=== PATIENT | female | born 1935 | race Caucasian/White ===

== ENCOUNTER 2016-10-31 01:16 | Emergency (ER) | payer MEDICARE ==
[~2016-10-31] VITALS: Ht 170.2 cm; Wt 118.5 kg
[2016-10-31 01:16] VITALS: Ht 170.2 cm; Wt 118.5 kg
[~2016-10-31 01:16] MED LIST: ACET-2321 PO; ALBU18HF2 INH; ALBU2.5V2 AEROSOL; AMIO200T2 PO; AMLO5TAB4 PO; APIX5TAB PO; BUDE0.5A IH; CALC-747 PO; CYCL-375 PO; DOCU-175 PO; FENO150C4 PO; FURO40TA5 PO; GLUC-176 PO; GUAI120015 PO; LEVO25TA4 PO; LYSI500T PO; METO-482 PO; MINO10TA PO; NITR0.4T SL; POTA10TA92 PO; PRAV80TA23 PO; PRED10TA PO; RANI-45 PO; TOLT4CAP12 PO; TRAM50TA4 PO; [UNRECOGNIZED DRUG - CODE] PO
--- OUTSIDE RECORDS SUMMARY | 2016-10-31 01:25 | XMS REPORT | Referral Summary ---
Author Author [facility] Organization [facility] Address Unknown Phone Unavailable Care Team Providers Care Detective Narcotics And Vice Name Role Phone Booker Pierre Primary Care Physician [phone] Encounter VC Date(s): 09/03/16 - 09/03/16 [facility] [address] [place], [place] [address] Discharge Disposition: 01-Home or Self Care Attending Physician: Kate Khan APRN Admitting Physician: Kate Khan APRN Vital Signs Most recent to 1 oldest [Reference Range]: Respiratory Rate 22 br/min [14-20 br/min] *HI* (09/03/16 10:08 AM) Problem List Condition Effective Dates Status Health Status Informant Kidney function Active patient abnormal(Confirmed) Acute Active pain(Confirmed) Atrial Active patient fibrillation(Confirm ed) COPD (chronic Active obstructive pulmonary disease)(Confirmed) CHF (congestive Active patient heart failure)(Confirmed) Edema(Confirmed) Active patient GERD Active patient (gastroesophageal reflux disease)(Confirmed) Hypertension(Confirm Active patient ed) Breast Active patient cancer(Confirmed) Myocardial Active infarction(Confirmed ) Mumps(Confirmed) Active Obesity(Confirmed) Active patient Scarlet Active fever(Confirmed) Sleep Active patient apnea(Confirmed) Chicken Active pox(Confirmed) Shingles(Confirmed) Active Allergies, Adverse Reactions, Alerts No Known Allergies Medications albuterol 5 mg/mL (0.5%) inhalation solution 2.5 mg 0.5 mL, NEB, qAM, # 20 mL, 0 Refill(s) Start Date: 07/20/16 Status: Ordered amiodarone 200 mg oral tablet 200 mg 1 tabs, Oral, Daily, 0 Refill(s) Start Date: 06/23/16 Status: Ordered amLODIPine 5 mg oral tablet 5 mg 1 tabs, Oral, Daily, 0 Refill(s) Start Date: 06/02/15 Status: Ordered amoxicillin 500 mg oral capsule 500 mg 1 caps, Oral, Daily, 0 Refill(s) Start Date: 06/23/16 Status: Ordered budesonide 0.5 mg/2 mL inhalation suspension 0.5 mg 2 mL, NEB, BID, # 120 mL, 0 Refill(s) Start Date: 06/02/15 Status: Ordered Colace 100 mg, Oral, BID, 0 Refill(s) Start Date: 06/02/15 Status: Ordered cyclobenzaprine 10 mg oral tablet 10 mg 1 tabs, Oral, BID, as needed for spasm, # 30 tabs, 0 Refill(s) Start Date: 06/02/15 Status: Ordered Detrol LA 4 mg, Oral, Daily, 0 Refill(s) Start Date: 06/02/15 Status: Ordered Eliquis 5 mg oral tablet 5 mg 1 tabs, Oral, BID, # 60 tabs, 0 Refill(s) Start Date: 05/29/15 Status: Ordered fenofibrate 40 mg oral tablet 40 mg 1 tabs, Oral, Daily, 0 Refill(s) Start Date: 06/02/15 Status: Ordered furosemide 40 mg, Oral, After Lunch, 0 Refill(s) Start Date: 07/20/16 Status: Ordered Klor-Con 10 10 mEq, Oral, BID, 0 Refill(s) Start Date: 06/02/15 Status: Ordered Lasix 40 mg oral tablet 80 mg 2 tabs, Oral, qAM, 0 Refill(s) Start Date: 06/02/15 Status: Ordered metoprolol tartrate 50 mg oral tablet 50 mg 1 tabs, Oral, BID, 0 Refill(s) Start Date: 06/23/16 Status: Ordered minoxidil 10 mg, Oral, TID, 0 Refill(s) Start Date: 06/02/15 Status: Ordered Mucinex 1 tabs, Oral, q12hr, 0 Refill(s) Start Date: 06/23/16 Status: Ordered nitroglycerin 0.4 mg sublingual tablet 0.4 mg 1 tabs, SubLingual, q5min, as needed for chest pain, # 100 tabs, 0 Refill (s) Start Date: 06/02/15 Status: Ordered nystatin Oral, 0 Refill(s) Start Date: 09/03/16 Status: Ordered Osteo Bi-Flex 1 tabs, Oral, TID, 0 Refill(s) Start Date: 06/02/15 Status: Ordered Oystercal-D 1 tabs, Oral, BID, 0 Refill(s) Start Date: 06/02/15 Status: Ordered pravastatin 80 mg oral tablet 80 mg 1 tabs, Oral, Bedtime (once a day), 0 Refill(s) Start Date: 06/02/15 Status: Ordered ranitidine 150 mg oral tablet 150 mg 1 tabs, Oral, Daily, 0 Refill(s) Start Date: 06/02/15 Status: Ordered Synthroid 25 mcg (0.025 mg) oral tablet 25 mcg 1 tabs, Oral, Daily, # 30 tabs, 0 Refill(s) Start Date: 06/23/16 Status: Ordered Ultram 50 mg oral tablet 50 mg 1 tabs, Oral, q6hr, as needed for pain, 0 Refill(s) Start Date: 06/02/15 Status: Ordered Results No data available for this section Immunizations No data available for this section Procedures Procedure Date Related Diagnosis Body Site ankle Breast biopsy sample Bunion left foot1 History of right total knee arthroplasty2 Insertion of [id number] Knee arthroplasty left knee x 34 Mastectomy of right breast [id number],2005 Social History Social History Type Response Smoking Status Never smoker Assessment and Plan Extracted from: Title: Office Visit Note Author: Kate Khan APRN Date: 09/03/16 Assessment/Plan Proximal humerus fracture Patient is 12 weekspost falland left proximal humerus fracture. [facility]. Patient will follow-up with us again in 1 monthfor reevaluation. Pt is in agreement with this plan. All questions where answered in clinic. My card was given to the pt and told to call if they have any questions or concerns. Ordered: Office Visit Level 3 Est 13973 Request for Therapies XR Shoulder Complete Left
--- OUTSIDE RECORDS SUMMARY | 2016-10-31 01:26 | XMS REPORT | Referral Summary ---
Author Author [facility] Organization [facility] Address Unknown Phone Unavailable Care Team Providers Care Staking Engineer Name Role Phone Booker Pierre Primary Care Physician [phone] Encounter VC Date(s): 07/27/16 - 07/27/16 [facility] [address] [place] [address] [phone] Discharge Disposition: -Home or Self Care Attending Physician: Brenden Koroma MD Admitting Physician: Brenden Koroma MD Vital Signs Most recent to 1 oldest [Reference Range]: Temperature Oral 36.8 degC [35.8-37.3 degC] (07/20/16 2:00 PM) Temperature Skin 36.7 degC [36-37 degC] (07/27/16 9:45 AM) Temperature Temporal 37.0 degC Artery [36.3-37.8 (07/27/16 3:20 PM) degC] Peripheral Pulse 99 bpm Rate [60-100 bpm] (07/27/16 3:20 PM) Heart Rate Monitored 108 bpm [60-100 bpm] *HI* (07/27/16 2:32 PM) Respiratory Rate 18 br/min [14-20 br/min] (07/27/16 3:20 PM) Blood Pressure 120/61 mmHg [90-140/60-90 mmHg] (07/27/16 3:20 PM) SpO2 95 % (07/27/16 3:20 PM) Problem List Condition Effective Dates Status Health [...] Refill (s) Start Date: 06/02/15 Status: Ordered Osteo Bi-Flex 1 tabs, Oral, [...] Refill(s) Start Date: 06/02/15 Status: Ordered Results Chemistry Most recent to 1 oldest [Reference Range]: Blood Glucose, 114 mg/dL Capillary [70-100 *HI* mg/dL] (07/27/16 9:49 AM) Immunizations No data available for this section Procedures Procedure Date Related Diagnosis Body Site ankle Breast biopsy sample Bunion left foot1 History of right total knee arthroplasty2 Insertion of [id number] Knee arthroplasty left knee x 34 Mastectomy of right breast [id number],1998,2005 Social History Social History Type Response Smoking Status Never smoker Assessment and Plan No data available for this section
--- OUTSIDE RECORDS SUMMARY | 2016-10-31 01:26 | XMS REPORT | Continuity of Care Document ---
Author Author [facility] Organization [facility] Address Unknown Phone Unavailable Allergies Medications Medication Packaging Start Date Stop Date Route Dosage Sig lysine 500 mg tablet 05/16/2015 500 mg take 1 (one) Tablet by Oral route daily Pulmicort 0.5 mg/2 mL suspension for nebulization 05/16/2015 0.5 mg/2 mL 1 (one) by Inhalation route daily pravastatin 80 mg tablet 05/16/2015 80 mg take 1 (one) Tablet by Oral route daily potassium chloride ER 20 mEq tablet,extended release(part/ cryst) 05/16/2015 20 mEq 3 (three) by Oral route daily ranitidine 150 mg tablet 05/26/2015 05/26/2015 150 mg take 1 (one) Tablet by Oral route daily Osteo Bi-Flex 250 mg-200 mg tablet Ampule 08/03/2016 250-200 mg take 1 (one) Tablet by Oral route daily Problems Date Dx Coded Attending Type Code Diagnosis Diagnosed By 06/09/2015 LAURA BERMUDEZ MD C34.12 Malignant neoplasm of upper lobe, left bronchus or lung AIDAN AVILA, LAURA 06/09/2015 LAURA BERMUDEZ MD J45.40 Moderate persistent asthma, uncomplicated AIDAN AVILA, LAURA 06/09/2015 LAURA BERMUDEZ MD R06.02 Shortness of breath ДМИТРИЙ LINARES MD, LAURA 06/09/2015 LAURA BERMUDEZ MD R09.02 Hypoxemia AIDAN AVILA, LAURA 08/09/2016 LAURA BERMUDEZ MD J45.40 Moderate persistent asthma, uncomplicated AIDAN AVILA, LAURA 08/09/2016 LAURA BERMUDEZ MD R06.02 Shortness of breath ДМИТРИЙ LINARES MD, LAURA 08/09/2016 LAURA BERMUDEZ MD R09.02 Hypoxemia AIDAN AVILA, LAURA 09/20/2016 LAURA BERMUDEZ MD J45.909 Unspecified asthma, uncomplicated LAURA BERMUDEZ MD Procedures Code Description [place] [address] Noninvasive ear or pulse oximetry for oxygen saturation; single determination LAURA BERMUDEZ MD 12/22/2015 50033 Office or other outpatient visit for the evaluation and management of an established patient, which LAURA BERMUDEZ MD 12/22/2015 06379 Office or other outpatient visit for the evaluation and management of an established patient, which LAURA BERMUDEZ MD 08/09/2016 36072 Office or other outpatient visit for the evaluation and management of an established patient, which LAURA BERMUDEZ MD 08/09/2016 15432 Office or other outpatient visit for the evaluation and management of an established patient, which LAURA BERMUDEZ MD 09/06/2016 33389 Bronchodilation responsiveness[place] [address], pre- and post- bronchodilator administration LAURA BERMUDEZ MD 09/20/2016 72350 Gas dilution or washout for determination of lung volumes and, when performed, distribution of venti LAURA BERMUDEZ MD 09/20/2016 46624 Diffusing capacity (eg, carbon monoxide, membrane) (List separately in addition to code for primary LAURA BERMUDEZ MD 09/20/2016 92020 Bronchodilation responsiveness[place] [address], pre- and post- bronchodilator administration LAURA BERMUDEZ MD 10/06/2016 82963 Gas dilution or washout for determination of lung volumes and, when performed, distribution of venti LAURA BERMUDEZ MD 10/06/2016 02568 Diffusing capacity (eg, carbon monoxide, membrane) (List separately in addition to code for primary LAURA BERMUDEZ MD 10/06/2016 Results Encounters ACCT No. Visit Date/Time Discharge Status Pt. Type Provider Facility Loc./Unit Complaint [id number] 02/29/2012 07:23:00 2011 13:00:00 DIS Outpatient Nacho RENEE, [facility]
--- OUTSIDE RECORDS SUMMARY | 2016-10-31 01:26 | XMS REPORT | Continuity of Care Document ---
Author Author [facility] Organization [facility] Address Unknown Phone Unavailable Support Name Relationship Address Phone ANGY ZUNIGA DO Caregiver [address] [place] [address] Unavailable THEA BREAUX MD Caregiver [address] [place] [address] [place] [phone] Unavailable SARWAT ZAMAN(DPOA) Next Of Kin X X, X X [phone] Insurance Providers Guarantor Stefany Campo Address [address] [place] [id number] Email [email or web address] Payer [facility] Policy Number [id number] Subscriber's Name Douglas Campo Relationship 01 Spouse Group Number [id number] Effective Date 11 Payer Medicare Policy Number [id number] Subscriber's Name Stefany Campo Relationship 18 Self Effective Date 99 Advance Directives Directive Response Recorded Date/Time Advanced Directives Type DPOA for Healthcare 06/29/16 6:52am Chief Complaint and Reason for Visit Chief Complaint Throat Pain/Injury Reason for Visit Allergic reaction Pneumonia Problems Active Problems Medical Problem Onset Date Status Aortic stenosis Unknown Chronic Arteriosclerotic heart disease (ASHD) Unknown Chronic Atrial fibrillation with RVR Unknown Acute COPD (chronic obstructive pulmonary disease) Unknown Chronic Chest pressure Unknown Acute Chronic diastolic CHF (congestive heart failure) Unknown Chronic Diastolic CHF Unknown Chronic Fluid excess Unknown Acute GERD (gastroesophageal reflux disease) Unknown Chronic HTN (hypertension) Unknown Chronic Hyperlipidemia Unknown Chronic Left upper lobe pneumonia Unknown Acute Lung mass Unknown Acute Lymphedema of both lower extremities Unknown Chronic Mild CAD Unknown Chronic Mitral valve prolapse Unknown Chronic Morbid obesity with BMI of 45.0-49.9, adult Unknown Chronic NSTEMI (non-ST elevated myocardial infarction) Unknown Resolved New onset atrial fibrillation Unknown Acute MELLY on CPAP Unknown Chronic Osteoarthritis Unknown Chronic PAF (paroxysmal atrial fibrillation) Unknown Acute Pulmonary edema Unknown Acute Right-sided heart failure Unknown Chronic Stage III chronic kidney disease Unknown Chronic Past Problems Medical Problem Onset Date Allergic reaction Unknown Chest pain Unknown Displaced comminuted fracture of shaft of humerus with routine healing Unknown Left lower lobe pneumonia Unknown Pneumonia Unknown Medications Current Home Medications Medication Dose Units Route Directions Days Qty Instructions Start Date Acetaminophen (Tylenol) 325 Mg Tablet 325 Mg Oral Daily as needed for Pain 07/03/15 Albuterol Sulfate 2.5 Mg/0.5 Ml Vial.neb 2.5 Mg Aerosol Tx. Every Morning as needed for Shortness Of Air/Wheezing 02/19/16 Albuterol Sulfate (Ventolin Hfa 90 Mcg/Actuation) 18 Gm Hfa.aer.ad 2 Puff Inhalation Every 6 Hours as needed for Shortness Of Air 07/03/15 Amiodarone Hcl 200 Mg Tablet 200 Mg Oral Daily 30 Tablet 07/09/15 Amlodipine Besylate (Norvasc) 5 Mg Tablet 5 Mg Oral Daily Amoxicillin/Potassium Clav (Amoxicillin-Clav Er 1,000-62.5) 1 Each Tab.er.12h 1 Tab-Cap Oral Twice A Day 28 Tablet-Capsule 06/29/16 Apixaban (Eliquis) 5 Mg Tablet 5 Mg Oral Twice A Day 07/03/15 Budesonide (Pulmicort) 0.5 Mg/2 Ml Amp 1 Vial Inhalation Twice A Day 12/16/10 Calcium Carbonate/Vitamin D3 (Calcium 600 + Vit D 400 Tablet) 1 Each Tablet 1 Tab Oral Twice A Day 01/16/15 Cyclobenzaprine Hcl 10 Mg Tablet 10 Mg Oral Twice A Day 01/16/15 Docusate Sodium 100 Mg Capsule 100 Mg Oral Twice A Day 04/28/15 Fenofibrate 150 Mg Capsule 150 Mg Oral Daily takes with supper Furosemide 40 Mg Tablet 2 Tab Oral Am 01/16/15 Furosemide 40 Mg Tablet 40 Mg Oral Every Evening 12/31/15 Glucosamine Hcl/Chondr Mittal A Na (Osteo Bi-Flex Caplet) 1 Each Tablet 1 Tab Oral Three Times A Day 01/16/15 Guaifenesin (Mucinex) 1,200 Mg Tbbp.12hr 1 Tab Oral Twice A Day 14 Tablet 02/19/16 Levothyroxine Sodium (Synthroid) 25 Mcg Tablet 25 Mcg Oral Daily 12/31/15 Lysine (L-Lysine) 500 Mg Tablet 500 Mg Oral Daily 04/28/15 Metoprolol Tartrate (Lopressor) 50 Mg Tablet 50 Mg Oral Twice Daily With Meals 30 Days 60 Tablet 02/20/16 Minoxidil 10 Mg Tablet 10 Mg Oral Qd 08/05/10 Nitroglycerin (Nitrostat) 0.4 Mg Tablet 0.4 Mg Sublingual Every 5 Minutes X 3 as needed for Chest Pain 07/03/15 Potassium Chloride (Klor-Con 10) 10 Meq Tablet.sa 10 Meq Oral Twice A Day 08/20/09 Pravastatin Sodium 80 Mg Tablet 80 Mg Oral Bedtime 01/16/15 Prednisone 10 Mg Tablet 10 Mg Oral As Directed 24 Tablet 5 Tablets by mouth daily for 2 days THEN, 4 Tablets by mouth daily for 2 days THEN, 3 Tablets by mouth daily for 1 day THEN, 2 Tablets by mouth daily for 1 day THEN, 1 Tablet by mouth daily for 1 Day. 06/29/16 Ranitidine Hcl (Zantac) 150 Mg Tablet 150 Mg Oral Twice A Day Tolterodine Tartrate (Detrol La) 4 Mg Cap.sr.24h 4 Mg Oral Daily 08/20/09 Tramadol Hcl 50 Mg Tablet 50 Mg Oral Bedtime 01/16/15 Past Home Medications Medication Directions Ordered Status Acetaminophen (Tylenol Extra Strength) 500 Mg Tablet, 2 Tab Oral Three Times A Day 01/16/15 Discontinued Acetaminophen (Tylenol Arthritis) 650 Mg Tablet, 2 Tab Oral Daily 08/05/10 Discontinued Albuterol , 0.083 Inhalation As Needed 08/20/09 Discontinued Amlodipine Besylate (Norvasc) 5 Mg Tablet, 5 Mg Oral Daily 05/01/15 Discontinued Amoxicillin 500 Mg Capsule, 500 Mg Oral Three Times A Day 12/31/15 Discontinued Amoxicillin Trihydrate (Amoxicillin) 250 Mg Tab.chew, 250 Mg Oral Four Times Daily 01/02/09 Discontinued Aspirin 325 Mg Tablet, 1 Tab Oral Every Other Day 12/08/12 Discontinued Aspirin (Aspir 81) 81 Mg Tablet.dr, 81 Mg Oral Daily 08/20/09 Discontinued Budesonide (Rhinocort Aqua) 8.6 Gm [place], 8.6 Gm Nasal As Needed 08/20/09 Discontinued Budesonide (Rhinocort Aqua) 8.6 Gm [place], 0.32 Mg Nasal As Needed 08/20/09 Discontinued Ca Carbonate/Mgox/Vit D2/Biofl (Calci-Max Cm-600 Softgel) 1 Cap Capsule, 1 Cap Oral Daily 08/20/09 Discontinued Calcium Carbonate/Vitamin D3 (Vitamin D-3 400 Units Tablet) 1 Tab Tablet, 1 Tab Oral Daily 08/05/10 Discontinued Diclofenac Sodium/Misoprostol (Arthrotec 50 Tablet Ec) 1 Tab.ec Tablet., 1 Tab.ec Oral Twice A Day 08/20/09 Discontinued Diclofenac Sodium/Misoprostol (Arthrotec 50 Tablet Ec) 1 Tab.ec Tablet., 1 Tab.ec Oral Twice A Day 01/03/09 Discontinued Fenofibrate Nanocrystallized (Tricor) 145 Mg Tablet, 130 Mg Oral Bedtime 04/04 Discontinued Guaifenesin (Mucinex) 600 Mg Tablet.sa, 600 Mg Oral Daily 08/05/10 Discontinued Hydralazine Hcl 25 Mg Tablet, 25 Mg Oral Twice A Day 08/20/09 Discontinued Magnesium , 1 Tab Oral Daily 08/05/10 Discontinued Methylcellulose (Citrucel) 500 Mg Tablet, 500 Mg Oral Daily 08/20/09 Discontinued Metoprolol Succinate 200 Mg Tab.sr.24h, 1 Tab Oral Twice A Day 08/20/09 Discontinued Metoprolol Succinate (Toprol Xl) 100 Mg Tab.sr.24h, 100 Mg Oral Bedtime 01/03 Discontinued Omeprazole (Prilosec) 20 Mg Capsule., 20 Mg Oral Daily 08/20/09 Discontinued Prednisone 5 Mg Tablet, 5 Mg Oral Taper 04/21/12 Discontinued Prochlorperazine Maleate 10 Mg Tablet, 10 Mg Oral As Needed 12/31/15 Discontinued Propoxyphene/Acetaminophen (Darvocet-N 100 Tablet) 1 Tab Tablet, 1 Tab Oral As Needed 08/20/09 Discontinued Psyllium Husk (Metamucil) 0.52 G Capsule, 2 Cap Oral Daily 08/05/10 Discontinued Tolterodine Tartrate (Detrol La) 4 Mg Cap.sr.24h, 4 Mg Oral Daily 01/02/09 Discontinued Trandolapril/Verapamil Hcl (Tarka 1/240 Mg Tablet Sa) 1 Bottle Tbmp.24hr, 240 Mg Oral Daily 08/20/09 Discontinued Verapamil Hcl (Verapamil Er) 120 Mg Tablet.er, 1 Tab Oral Three Times A Day 12/08/12 Discontinued Zaleplon (Sonata) 5 Mg Capsule, 5 Mg Oral As Needed 08/20/09 Discontinued Social History Social History Problem Response Recorded Date/Time Onset Date Status Chewing Tobacco Status No 12/08/2012 10:30am Not Applicable Not Applicable Hx Substance Use No 06/29/2016 7:00am Not Applicable Not Applicable Hx Alcohol Use No 06/29/2016 7:00am Not Applicable Not Applicable Has the pt used tobacco in the last 12 months No 02/19/2016 1:04pm Not Applicable Not Applicable Tobacco Usage none 04/28/2015 9:53pm Not Applicable Not Applicable Query Response Start Date Stop Date Smoking Status Never smoker Hospital Discharge Instructions No hospital discharge instructions. Plan of Care Discharge Date 06/29/16 10:20am Disposition 01 DISCHARGED HOME, SELF-CARE Condition at Discharge Improved Instructions/Education Provided DI for Pneumonia -- Adult DI for General Allergic Reactions Prescriptions See Medication Section Referrals ANGY ZUNIGA DO Address: [address] [place] [address] [phone] Note: RAEGAN ACKERMAN MD Address: [address] [place] [address] [place] [address] [phone] Note: KEEP APPOINTMENT TODAY AT 11:30 SCHEDULED CHRIS TORO MD Address: [address] [place] [address] [phone] Note: PLEASE CALL TODAY FOR FOLLOW UP APPOINTMENT Additional Instructions/Education 1) CONTINUE HOME MEDICATIONS DIRECTED 2) FOLLOW UP WITH DR. ACKERMAN TODAY SCHEDULED AT 11:30 3) FOLLOW UP WITH DR. TORO IN NEXT WEEK. PLEASE CALL TODAY FOR APPOINTMENT. 4) START AUGMENTIN 875 MG BY MOUTH TWICE DAILY FOR 14 DAYS RECOMMEND TAKING AN OVER THE COUNTER PROBIOTIC WITH ANTIBIOTICS TO HELP PREVENT DIARRHEA AND ANTI-BIOTIC ASSOCIATED GI PROBLEMS 5) PREDNISONE TAPER DIRECTED FOR SEVEN DAYS. YOUR X-RAY DEMONSTRATES PERSISTENT POST-OBSTRUCTIVE ATELECTASIS AND/OR PNEUMONIA. YOU RECEIVED ROCEPHIN IV IN THE ER TODAY. SINCE YOU JUST COMPLETED A COURSE OF LEVAQUIN, WITHOUT RESOLUTION, A DIFFERENT ANTIBIOTIC IS RECOMMENDED. PLEASE START AUGMENTIN TWICE A DAY FOR 14 DAYS AND FOLLOW UP WITH DR. TORO REGARDING FURTHER TESTING AND TREATMENT OF LUNG MASS. Care Plan and Goals Physician Care Plan Problem: 1) PERSISTENT POST-OBSTRUCTIVE PNEUMONIA 2) ALLERGIC REACTION Goal: Follow up with primary care provider 1) KEEP APPT WITH DR. ACKERMAN TODAY AT 11:30 OR SCHEDULED 2) FOLLOW UP WITH DR. TORO WITHIN THE NEXT WEEK Instructions: Take medications and follow care plan as discussed/written Functional Status No functional status results. Allergies, Adverse Reactions, Alerts Allergen Type Severity Reaction Status Last Updated No Known Drug Allergies Allergy Unknown Active 06/29/16 Immunizations Query Response on File Recorded Date/Time Hx Influenza Vaccination Y 02/19/16 1:04pm Hx Pneumococcal Vaccination Y 02/19/16 1:04pm Hx Influenza Vaccination Y 02/19/16 1:04pm Hx Tetanus Diptheria Y 5 YRS 01/16/15 2:36pm Influenza Vaccine Hx 04/2506/29/16 7:00am Vital Signs Acute Vital Signs Vital Response Date/Time Temperature (Fahrenheit) 98.2 deg F (96.8 - 99.1) 06/29/2016 10:20am Temperature (Calculated Celsius) 36.35428 degrees C (36.0 - 37.3) 06/29/2016 10:20am Pulse Rate (adult) 92 bpm (60 - 100) 06/29/2016 10:20am Respiratory Rate 20 breaths/min (10 - 20) 06/29/2016 10:20am O2 Sat by Pulse Oximetry 98 % (90 - 100) 06/29/2016 10:20am Oxygen Flow Rate 3.00 L/min 06/29/2016 10:20am Blood Pressure 142/94 mm Hg 06/29/2016 10:20am Height (Feet) 5 feet 06/29/2016 6:52am Height (Inches) 8.00 inches 06/29/2016 6:52am Weight (Kilograms) 105.400 kg 06/29/2016 6:52am Body Mass Index (BMI) 35.0 06/29/2016 6:52am Results Laboratory Results Test Name Result Units Flags Reference Collection Date/Time Result Date/ Time Comments Lactate Dehydrogenase 608 U/L 313-618 03/10/2016 10:20am 03/10/2016 10: 50am Magnesium Level 1.9 MG/DL 1.6-2.3 03/10/2016 10:20am 03/10/2016 10: 50am Carcinoembryonic Antigen 2.24 UG/L 0-3.0 02/05/2016 8:00am 02/05/2016 9 :14am Urine Color YELLOW YELLOW 01/20/2016 9:33am 01/20/2016 10:00am Urine Turbidity SL CLOUDY CLEAR 01/20/2016 9:33am 01/20/2016 10:00am Urine Specific [place] 1.010 L 1.015-1.025 01/20/2016 9:33am 2015 10:00am Urine pH 6.5 5.0-8.0 01/20/2016 9:33am 01/20/2016 10:00am Urine Leukocyte Esterase NEGATIVE NEGATIVE 01/20/2016 9:33am 2015 10:00am Urine Nitrite NEGATIVE NEGATIVE 01/20/2016 9:3301/20/2016 10:00am Urine Protein NEGATIVE NEGATIVE 01/20/2016 9:33am 01/20/2016 10:00am Urine Glucose (UA) NEGATIVE NEGATIVE 01/20/2016 9:33am 01/20/2016 10: 00am Urine Ketones NEGATIVE NEGATIVE 01/20/2016 9:33am 01/20/2016 10:00am Urine Urobilinogen 0.2 EU/DL NORMAL 01/20/2016 9:33am 01/20/2016 10: 00am Urine Bilirubin NEGATIVE NEGATIVE 01/20/2016 9:33am 01/20/2016 10: 00am Urine Blood 1+ A NEGATIVE 01/20/2016 9:33am 01/20/2016 10:00am Urine WBC NONE SEEN /HPF 0-5 01/20/2016 9:33am 01/20/2016 10:07am Urine RBC 1-3 /HPF 0-3 01/20/2016 9:33am 01/20/2016 10:07am Urine Squamous Epithelial Cells 5-10 01/20/2016 9:33am 01/20/2016 10:07am Urine Bacteria TRACE H NEGATIVE 01/20/2016 9:33am 01/20/2016 10:07am Urine Culture Indicated CULT NOT INDICATED 01/20/2016 9:33am 2015 10:07am Urinalysis Comment MICROSCOPIC NOT IND. 01/13/2016 11:20am 2015 12:01pm Troponin I 0.018 ng/ml 0-0.12 06/20/2016 8:14am 06/20/2016 8:53am Troponin values with a difference of 55% increase from orginal troponin value represent a true biological DELTA value. (%increase Calc=Orginal Troponin value, divided by subsequent Troponin value, multiplied by 100) TN-Ctp-C-Type Natriuretic Peptide 1820 PG/ML H 0-175 06/20/2016 8:14am 06/20/2016 8:53am Rule in cut points: <50 years old=450; 50-75 years old=900; >75 years old=1800; When utilizing ProBNP rule-in cut points, adjustment for impaired renal function is typically not required. Plasma Lactate 0.7 MMOL/L 0.6-2.2 06/20/2016 8:1406/20/2016 8:40am White Blood Count 6.1 T/MM3 4.5-11.0 06/29/2016 7:06/29/2016 7: 44am Red Blood Count 3.20 M/MM3 L 4.00-5.20 06/29/2016 7:06/29/2016 7: 44am Hemoglobin 10.0 GM/DL L 12-16 06/29/2016 7:06/29/2016 7:44am Hematocrit 31.2 % L 36-46 06/29/2016 7:06/29/2016 7:44am Mean Corpuscular Volume 97.5 UM3 80-100 06/29/2016 7:06/29/2016 7: 44am Mean Corpuscular Hemoglobin 31.3 UUG 26-34 06/29/2016 7:2015 7:44am Mean Corpuscular Hemoglobin Concent 32.1 GM/DL 31-37 06/29/2016 7:06/29/2016 7:44am RDW Standard Deviation 47.1 FL 36.9-50.2 06/29/2016 7:06/29/2016 7 :44am Platelet Count 390 T/MM3 130-400 06/29/2016 7:06/29/2016 7:44am Mean Platelet Volume 9.0 UM3 L 9.4-12.4 06/29/2016 7:06/29/2016 7: 44am Neutrophils (%) (Auto) 52.5 % 33-66 06/29/2016 7:06/29/2016 7: 44am Lymphocytes (%) (Auto) 34.2 % 23-45 06/29/2016 7:06/29/2016 7: 44am Monocytes (%) (Auto) 9.7 % H 0-9.0 06/29/2016 7:06/29/2016 7:44am Eosinophils (%) (Auto) 3.1 % 0-4 06/29/2016 7:06/29/2016 7:44am Basophils (%) (Auto) 0.3 % 0-2 06/29/2016 7:06/29/2016 7:44am Immature Granulocyte % (Auto) 0.2 % 0.0-0.5 06/29/2016 7:2015 7:44am Absolute Neutrophils (auto) 3.2 T/MM3 1.8-7.7 06/29/2016 7:2015 7:44am Absolute Lymphocytes (auto) 2.1 T/MM3 1-4.8 06/29/2016 7:2015 7:44am Absolute Monocytes (auto) 0.6 T/MM3 0-0.8 06/29/2016 7:06/29/2016 7:44am Absolute Eosinophils (auto) 0.2 T/MM3 0-0.5 06/29/2016 7:2015 7:44am Absolute Basophils (auto) 0.0 T/MM3 0-0.2 06/29/2016 7:06/29/2016 7:44am Absolute Immature Granulocyte (auto 0.01 T/MM3 0.00-0.03 06/29/2016 7: 06/29/2016 7:44am Icterus Index < 2 0-7 06/29/2016 7:06/29/2016 7:52am Chemistry Specimen Hemolysis < 15 0-25 06/29/2016 7:06/29/2016 7 :52am 0-25: Specimen Exhibited No Hemolysis. Turbidity < 20 0-20 06/29/2016 7:06/29/2016 7:52am Sodium Level 136 MEQ/L 134-144 06/29/2016 7:06/29/2016 7:52am Potassium Level 3.6 MEQ/L 3.6-5 06/29/2016 7:06/29/2016 7:52am Chloride Level 96 MEQ/L L 98-107 06/29/2016 7:06/29/2016 7:52am Carbon Dioxide Level 30 MEQ/L 22-30 06/29/2016 7:06/29/2016 7: 52am Anion Gap 10 MEQ/L 5-15 06/29/2016 7:06/29/2016 7:52am Blood Urea Nitrogen 25.0 MG/DL H 7-17 06/29/2016 7:06/29/2016 7: 52am Creatinine 1.4 MG/DL H 0.7-1.2 06/29/2016 7:06/29/2016 7:52am BUN/Creatinine Ratio 18 RATIO 6-06/29/2016 7:06/29/2016 7:52am Glomerular Filtration Rate Calc 36 06/29/2016 7:06/29/2016 7: 52am Glucose Level 100 MG/DL 65-110 06/29/2016 7:06/29/2016 7:52am Calculated Osmolality 266 MOSM/KG 261-280 06/29/2016 7:06/29/2016 7:52am Calcium Level 9.4 MG/DL 8.4-10.2 06/29/2016 7:06/29/2016 7:52am Total Bilirubin 0.80 MG/DL 0.20-1.30 06/29/2016 7:06/29/2016 7: 52am Alkaline Phosphatase 60 U/L 38-126 06/29/2016 7:06/29/2016 7:52am Total Protein 6.9 G/DL 6.3-8.2 06/29/2016 7:06/29/2016 7:52am Albumin 3.7 G/DL 3.5-5.0 06/29/2016 7:06/29/2016 7:52am Globulin 3.2 G/DL 2.4-3.6 06/29/2016 7:06/29/2016 7:52am Albumin/Globulin Ratio 1.2 RATIO 1.1-2.2 06/29/2016 7:06/29/2016 7 :52am Aspartate Amino Transf (AST/SGOT) 20 U/L 14-36 06/29/2016 7:2015 7:52am Alanine Aminotransferase (ALT/SGPT) 27 U/L 9-52 06/29/2016 7:27am 06/29 7:52am Group A Streptococcus Screen NEGATIVE NEGATIVE 06/29/2016 7:20am 7:45am Strep culture confirmation to follow Adenovirus (PCR) NEGATIVE NEGATIVE 06/29/2016 7:20am 06/29/2016 8: 46am Coronavirus Type 229E (PCR) NEGATIVE NEGATIVE 06/29/2016 7:20am 06/29 8:46am Coronavirus Type HKU1 (PCR) NEGATIVE NEGATIVE 06/29/2016 7:20am 06/29 8:46am Coronavirus Type NL63 (PCR) NEGATIVE NEGATIVE 06/29/2016 7:20am 06/29 8:46am Coronavirus Type OC43 (PCR) NEGATIVE NEGATIVE 06/29/2016 7:20am 06/29 8:46am Human Metapneumovirus (PCR) NEGATIVE NEGATIVE 06/29/2016 7:20am 06/29 8:46am Enterovirus/Rhinovirus (PCR) NEGATIVE NEGATIVE 06/29/2016 7:20am 8:46am Influenza Virus Type A (PCR) NEGATIVE NEGATIVE 06/29/2016 7:20am 8:46am Influenza Virus Type B (PCR) NEGATIVE NEGATIVE 06/29/2016 7:20am 8:46am Parainfluenza Type 1 (PCR) NEGATIVE NEGATIVE 06/29/2016 7:20am 2015 8:46am Parainfluenza Type 2 (PCR) NEGATIVE NEGATIVE 06/29/2016 7:20am 2015 8:46am Parainfluenza Type 3 (PCR) NEGATIVE NEGATIVE 06/29/2016 7:20am 2015 8:46am Parainfluenza Type 4 (PCR) NEGATIVE NEGATIVE 06/29/2016 7:20am 2015 8:46am Respiratory Syncytial Virus (PCR) NEGATIVE NEGATIVE 06/29/2016 7:20am 06/29/2016 8:46am Bordetella parapertussis DNA (PCR) NEGATIVE NEGATIVE 06/29/2016 7: 20am 06/29/2016 8:46am Chlamydia pneumoniae DNA (PCR) NEGATIVE NEGATIVE 06/29/2016 7:20am 8:46am Mycoplasma pneumoniae (PCR) NEGATIVE NEGATIVE 06/29/2016 7:20am 06/29 8:46am Microbiology Results Procedure Source Organism/Result Collection Date/Time Result Date/Time Result Status Urine Culture Urine, Voided-Not Cc-Midstream ESCHERICHIA COLI 01/20/2016 9: 33am 01/22/2016 11:08am Final Blood Culture Peripheral/Iv Start NO GROWTH AFTER 5 DAYS 06/20/2016 8:20am 06/25/2016 8:22am Final Group A Streptococcus Culture Throat CULTURE INITIATED - RESULTS PENDING 7:46am 06/29/2016 7:47am Preliminary Name: STEFANY CAMPO Unit #: [id number] : 1935 Sex: F Admit Date: Loc / Svc: ED Discharge Date: DIAGNOSTIC IMAGING REPORT Report #: [id number] [facility] SHIRAZ [place] INDICATION: ITS.REASON: SHORTNESS OF BREATH PROCEDURE: CHEST 2-VIEWS UPRIGHT (PA \\T\\ LAT) Encounter: Initial COMPARISON: Chest CT dated March 22, 2016 and chest x-ray dated February 19, 2016 FINDINGS: Left upper lobe mass better evaluated on prior CT. There is worsening postobstructive atelectasis in the left upper lobe. No pneumothorax. Probable trace left effusion. Heart size and mediastinal contours are grossly stable. Pulmonary vascularity is unchanged. Impression: Left upper lobe mass with postobstructive atelectasis or pneumonia. . Procedures Procedure Status Date Provider(s) COMPREHEN METABOLIC PANEL Completed 01/13/16 URINALYSIS AUTO W/O SCOPE Completed 01/13/16 COMPLETE CBC W/AUTO DIFF WBC Completed 01/13/16 URINE CULTURE/COLONY COUNT Completed 01/13/16 COMPREHEN METABOLIC PANEL Completed 01/13/16 URINALYSIS AUTO W/SCOPE Completed 01/13/16 COMPLETE CBC W/AUTO DIFF WBC Completed 01/13/16 URINE CULTURE/COLONY COUNT Completed 01/13/16 URINE BACTERIA CULTURE Completed 01/13/16 MICROBE SUSCEPTIBLE DAREK Completed 01/13/16 COMPREHEN METABOLIC PANEL Completed 01/13/16 CARCINOEMBRYONIC ANTIGEN Completed 01/13/16 COMPLETE CBC W/AUTO DIFF WBC Completed 01/13/16 COMPREHEN METABOLIC PANEL Completed 01/13/16 COMPLETE CBC W/AUTO DIFF WBC Completed 01/13/16 COMPREHEN METABOLIC PANEL Completed 01/13/16 LACTATE (LD) (LDH) ENZYME Completed 01/13/16 ASSAY OF MAGNESIUM Completed 01/13/16 COMPLETE CBC W/AUTO DIFF WBC Completed 01/13/16 METABOLIC PANEL TOTAL CA Completed 01/13/16 ROUTINE VENIPUNCTURE Completed 06/20/16 CT ANGIOGRAPHY CHEST Completed 06/20/16 METABOLIC PANEL TOTAL CA Completed 06/20/16 ASSAY OF LACTIC ACID Completed 06/20/16 ASSAY OF NATRIURETIC PEPTIDE Completed 06/20/16 ASSAY OF TROPONIN QUANT Completed 06/20/16 COMPLETE CBC W/AUTO DIFF WBC Completed 06/20/16 BLOOD CULTURE FOR BACTERIA Completed 06/20/16 BLOOD CULTURE FOR BACTERIA Completed 06/20/16 ELECTROCARDIOGRAM TRACING Completed 06/20/16 HYDRATION IV INFUSION INIT Completed 06/20/16 EMERGENCY DEPT VISIT Completed 06/20/16 [id number] ITEM OR SERVICE Completed 06/20/16 684197"INJECTION, HEPARIN SODIUM, (HEPARIN LOCK FLUSH), PER Completed 540073"INFUSION, NORMAL SALINE SOLUTION , 1000 CC" Completed 06/20/16 144962"INFUSION, NORMAL SALINE SOLUTION , 250 CC" Completed 06/20/16 534774"LOW OSMOLAR CONTRAST MATERIAL, 300-399 MG/ML IODINE C Completed Encounters Encounter Location Arrival/Admit Date Discharge/Depart Date Attending Provider Departed Emergency Room [facility] 06/29/16 6:49am 06/29/16 10: 20am THEA BREAUX MD Departed Emergency Room [facility] 06/20/16 7:21am 06/20/16 10: 56am OXANA PRADO DO Discharged Recurring [facility] 01/13/16 9:56am 05/06/16 11:59pm CHRIS TORO MD Recent Diagnosis
--- OUTSIDE RECORDS SUMMARY | 2016-10-31 01:27 | XMS REPORT | Referral Summary ---
Author Author [facility] Organization [facility] Address Unknown Phone Unavailable Care Team Providers Care Security Compliance Specialist Name Role Phone No PCP, [facility] Primary Care Physician [phone] Encounter VC Date(s): 07/09/16 - 07/09/16 [facility] [address] [place], [place] [address] Discharge Disposition: 01-Home or Self Care Attending Physician: Brenden Koroma MD Admitting Physician: Brenden Koroma MD Vital Signs No data available for this section Problem List Condition Effective Dates Status Health Status Informant COPD (chronic Active obstructive pulmonary disease)(Confirmed) CHF (congestive Active patient heart failure)(Confirmed) GERD Active patient (gastroesophageal reflux disease)(Confirmed) Hypertension(Confirm Active patient ed) Breast Active patient cancer(Confirmed) Myocardial Active infarction(Confirmed ) Mumps(Confirmed) Active Obesity(Confirmed) Active patient Scarlet Active fever(Confirmed) Sleep Active patient apnea(Confirmed) Chicken Active pox(Confirmed) Shingles(Confirmed) Active Allergies, Adverse Reactions, Alerts No Known Allergies Medications albuterol 90 mcg/inh inhalation powder 2 puffs, Inhalation, q4hr, Wheezing, 0 Refill(s) Start Date: 06/02/15 Status: Ordered amiodarone 200 mg oral tablet 200 mg 1 tabs, Oral, Daily, 0 Refill(s) Start Date: 06/23/16 Status: Ordered amLODIPine 5 mg oral tablet 5 mg 1 tabs, Oral, Daily, 0 Refill(s) Start Date: 06/02/15 Status: Ordered amoxicillin 500 mg oral capsule See Instructions, prior to dental appointment, 0 Refill(s) Start Date: 06/23/16 Status: Ordered Augmentin XR 1000 mg-62.5 mg oral tablet, extended release 1 tabs, Oral, q12hr, # 56 tabs, 0 Refill(s) Start Date: 07/09/16 Stop Date: 07/23/16 Status: Ordered benzonatate 100 mg oral capsule 100 mg 1 caps, Oral, TID, 0 Refill(s) Start Date: 06/02/15 Status: Ordered budesonide 0.5 mg/2 mL inhalation [...] Date: 06/02/15 Status: Ordered Detrol LA 4 mg oral capsule, extended release 4 mg 1 caps, Oral, Daily, 0 Refill(s) Start Date: 06/23/16 Status: Ordered Eliquis 5 mg oral tablet 5 mg 1 tabs, Oral, BID, # 60 tabs, 0 Refill(s) Start Date: 05/29/15 Status: Ordered fenofibrate 40 mg oral tablet 40 mg 1 tabs, Oral, Daily, 0 Refill(s) Start Date: 06/02/15 Status: Ordered Klor-Con 10 10 mEq, Oral, BID, 0 Refill(s) Start Date: 06/02/15 Status: Ordered Lasix 40 mg oral tablet 80 mg 2 tabs, Oral, BID, 0 Refill(s) Start Date: 06/02/15 Status: Ordered lysine 500 mg oral tablet 500 mg 1 tabs, Oral, Daily, 0 Refill(s) [...] Start Date: 06/02/15 Status: Ordered Osteo Bi-Flex Oral, TID, 0 Refill(s) Start Date: 06/02/15 Status: Ordered Oystercal-D 1 tabs, Oral, BID, 0 Refill(s) Start Date: 06/02/15 Status: Ordered pravastatin 80 mg oral tablet 80 mg 1 tabs, Oral, Bedtime (once a day), 0 Refill(s) Start Date: 06/02/15 Status: Ordered ranitidine 150 mg oral tablet 150 mg 1 tabs, Oral, BID, 0 Refill(s) Start Date: 06/02/15 Status: Ordered Synthroid 25 mcg (0.025 mg) oral tablet 25 mcg 1 tabs, Oral, Daily, # 30 tabs, 0 Refill(s) Start Date: 06/23/16 Status: Ordered traMADol 50 mg oral tablet 50 mg 1 tabs, Oral, TID, as needed for pain, # 40 tabs, 1 Refill(s), called to pharmacy (Rx) Start Date: 06/23/16 Stop Date: 07/16/16 Status: Ordered Tylenol Extra Strength 1,000 mg, Oral, q6hr, as needed for pain, 0 Refill(s) Start Date: 06/02/15 Status: Ordered Ultram 50 mg oral tablet 50 mg 1 tabs, Oral, Bedtime (once a day), as needed for pain, 0 Refill(s) Start Date: 06/02/15 Status: Ordered Results No data available for this section Immunizations No data available for this section Procedures Procedure Date Related Diagnosis Body Site ankle Breast biopsy sample Bunion left foot1 History of right total knee arthroplasty2 Insertion of [id number] Knee arthroplasty left knee x 34 Mastectomy of right breast [id number],1998,2005 Social History Social History Type Response Smoking Status Never smoker Assessment and Plan No data available for this section
--- OUTSIDE RECORDS SUMMARY | 2016-10-31 01:27 | XMS REPORT | Referral Summary ---
Author Author [facility] Organization [facility] Address Unknown Phone Unavailable Care Team Providers Care Crystallographer Name Role Phone Booker Pierre Primary Care Physician [phone] Encounter VC Date(s): 07/20/16 - 07/20/16 [facility] [address] [place] [id number] Discharge Disposition: 01-Home or Self Care Attending Physician: Brenden Koroma MD Admitting Physician: Brenden Koroma MD Vital Signs No data available for this section Problem List Condition Effective Dates Status Health Status Informant Kidney function Active patient abnormal(Confirmed) Atrial Active patient fibrillation(Confirm ed) COPD (chronic [...] (0.5%) inhalation solution 2.5 mg 0.5 mL, BEA, Estela, # 20 mL, 0 Refill(s) Start Date: [...] Refill(s) Start Date: 06/02/15 Status: Ordered Results Hematology Most recent to 1 oldest [Reference Range]: WBC [4.8-10.8 6.6 10*3/uL 10*3/uL] (07/20/16 3:34 PM) RBC [4.00-5.20] 3.74 *LOW* (07/20/16 3:34 PM) Hgb [12.0-16.0 11.8 gm/dL gm/dL] *LOW* (07/20/16 3:34 PM) Hct [37.0-47.0 %] 35.8 % *LOW* (07/20/16 3:34 PM) MCV [82.0-99.0 fL] 95.7 fL (07/20/16 3:34 PM) MCH [27.0-32.0 pg] 31.6 pg (07/20/16 3:34 PM) MCHC [32.0-36.0 33.0 gm/dL gm/dL] (07/20/16 3:34 PM) RDW [11.5-14.5 %] 14.3 % (07/20/16 3:34 PM) Platelet [150-400 313 10*3/uL 10*3/uL] (07/20/16 3:34 PM) MPV [9.4-12.4 fL] 9.7 fL (07/20/16 3:34 PM) Immature 0.5 % Granulocytes (07/20/16 3:34 PM) [0.0-1.0 %] Neutrophils [51-75 62 % %] (07/20/16 3:34 PM) Lymphocytes [20-46 25 % %] (07/20/16 3:34 PM) Monocytes [4-11 %] 9 % (07/20/16 3:34 PM) Eosinophils [0-4 %] 3 % (07/20/16 3:34 PM) Basophils [0-2 %] 0 % (07/20/16 3:34 PM) Neutro Absolute 4.07 [1.90-7.00] (07/20/16 3:34 PM) Lymph Absolute 1.67 [0.80-3.30] (07/20/16 3:34 PM) [place] Absolute 0.60 [0.30-1.00] (07/20/16 3:34 PM) Eos Absolute 0.20 [0.00-0.50] (07/20/16 3:34 PM) Baso Absolute 0.02 [0.00-0.20] (07/20/16 3:34 PM) Chemistry Most recent to 1 oldest [Reference Range]: Sodium Lvl [136-144 139 mEq/L mEq/L] (07/20/16 3:34 PM) Potassium Lvl 4.0 mEq/L [3.6-5.1 mEq/L] (07/20/16 3:34 PM) Chloride [99-109 97 mEq/L mEq/L] *LOW* (07/20/16 3:34 PM) CO2 [22-32 mEq/L] 32 mEq/L (07/20/16 3:34 PM) AGAP [3-20] 10 (07/20/16 3:34 PM) BUN [4-20 mg/dL] 20 mg/dL (07/20/16 3:34 PM) Glucose Lvl [70-100 114 mg/dL mg/dL] *HI* (07/20/16 3:34 PM) Creatinine Lvl 1.39 mg/dL [0.44-1.03 mg/dL] *HI* (07/20/16 3:34 PM) eGFR [>60] 36 1 *ABN* (07/20/16 3:34 PM) Calcium Lvl 9.7 mg/dL [8.6-10.0 mg/dL] (07/20/16 3:34 PM) 1Result Comment: Multiply eGFR results by 1.21 for race. Immunizations No data available for this section Procedures Procedure Date Related Diagnosis Body Site Collection of venous blood by venipuncture 07/20/16 ankle Breast biopsy sample Bunion left foot1 History of right total knee arthroplasty2 Insertion of [id number] Knee arthroplasty left knee x 34 Mastectomy of right breast [id number] 87429,1998,2005 Social History Social History Type Response Smoking Status Never smoker Assessment and Plan No data available for this section
[2016-10-31] MEDS ORDERED: ALBUTEROL/IPRATROPIUM INHAL. 2.5mg-0.5mg/3ml Neb. AEROSOL ONE (01:30)
--- NOTE | 2016-10-31 01:36 | ERPDOC ---
Departure Disposition Decision Date: Oct 31, 2016 Disposition Decision Time: 02:49 Disposition: 01 DISCHARGED HOME, SELF-CARE Impression Impression Impression: Primary Impression: Stable angina Additional Impression: COPD (chronic obstructive pulmonary disease) COPD type: COPD with acute exacerbation Qualified Codes: J44.1 - Chronic obstructive pulmonary disease with (acute) exacerbation Severity: Severe Condition: Improved Seen By: Physician only Referrals: ANGY ZUNIGA DO (Family) Patient Instructions: Angina (ED), COPD (Chronic Obstructive Pulmonary Disease ) (DC) Problems/Meds/Labs Reviewed?: Yes Medications reviewed and manag: Yes Additional Instructions: Use nitroglycerin at home one tablet every 5 minutes as needed for chest pain. Return to ER for any chest pain that does not resolve after 3 tablets or recurs more than twice in one day Albuterol nebulized treatments, use 4 times daily for the next week, may also use up to 6 per day as needed for wheezing or difficulty breathing Return immediately to the ER for any worsening symptoms Follow up care ordered?: Yes Mental Status: Alert HPI - Chest Pain General Chief Complaint: Chest Pain Stated Complaint: CP Time Seen by Provider: :23 Source: patient, RN/MD, EMS, snf records Exam Limitations: no limitations HPI - Chest Pain Initial Comments 2200 last night pt began having diffuse left sided chest pain, aching, and dyspnea. Tramadol at the [place] did not improve pain so she was sent for evaluation. Hx of lung CA with brain mets, COPD, and Afib with chronic ischemic heart disease. Pt has recently moved to [facility] and does not have all her meds there yet, including NTG. EMS gave one NTG to total relief of pain but pt still SOB. Has not had any breathing treatment since 5pm Occurred At: home Onset/Timing: Rapid Duration: 4-6 hrs Activities at Onset/Context: rest Location: substernal, anterior L Associated Symptoms: shortness of breath, DENIES: abdominal pain, back pain, diaphoresis, dizziness, edema, fast HR, fatigue, fever/chills, headache, heartburn, irregular HR, nausea/vomiting, rash, slow HR, swelling/lump in chest , syncope, weakness Nitro Today/Relief: 0.4 mg x 1, provided by EMS Aspirin Treatment Today: contraindicated Prior Chest Pain/Cardiac Juanis: non-cardiac Hx of Similar Symptoms: No Allergies: Coded Allergies: No Known Drug Allergies (Verified Allergy, Unknown, 06/29/16) Past History Past Medical History Metabolic: cancer, hypercholesterolemia, hypertension Cardiac: A-fib, CAD, CHF, NE, other Respiratory: COPD, pneumonia GI: GERD Female: renal insufficiency Musculoskeletal: osteoarthritis, other Surgical History General: other Joint: foot, knee Family History Family PMH: FOUND: NE, diabetes, hypertension Vaccines Hx Influenza Vaccination: Yes () Hx Pneumococcal Vaccination: Yes () Hx Tetanus Diptheria: Yes (5 YRS) Social History Smoking Status: Never smoker Does patient use chewing tobac: No Second Hand Exposure: No Substance Use Type: does not use Sexuality: male partner Household Members: spouse Record Review Pertinent history updated: Yes Review of Systems Constitutional Constitutional: DENIES: appetite decrease, appetite increase, chills, dizziness , fever, weakness ENMT Ears: DENIES: pain Hearing: DENIES: hearing loss, tinnitus Balance: DENIES: vertigo Mouth/Throat: DENIES: change in swallowing, change in voice, hoarsness, painful swallowing, sore throat Cardiovascular Cardiac: chest pain, DENIES: dyspnea on exertion Rhythm/Rate: DENIES: irregular beat, palpitations, tachycardia Vascular: DENIES: pedal edema Pulmonary Respiratory: dyspnea, pneumonia hx, DENIES: cough, exposure to TB, hyperventilation, last PPD, pleuritic chest pain, recent risky activities, tachypnea GI Upper Abdomen: DENIES: dysphagia, heartburn/indigestion, nausea, pain, vomiting Lower Abdomen: DENIES: blood in stool, constipation, diarrhea, pain General: DENIES: burning, dysuria, frequency, pain, urgency Musculoskeletal General: DENIES: cramps, joint pain, joint swelling, pain, weakness Integumentary Skin: DENIES: rash, sores Neurological General: DENIES: headache, numbness, tingling, vertigo, weakness Psychiatric Psychiatric: DENIES: anxiety, depression, nervousness Physical Exam General General Nourishment: well nourished, well developed, appears stated age, obese General Body Habitus: well groomed Vitals and Pain First Documented Vital Signs Date Time Temp Pulse Resp B/P Pulse Ox O2 Delivery O2 Flow Rate FiO2 10/31/16 01:16 132 24 135/75 78 Room Air 10/31/16 01:45 3.00 Weight: Kilograms: Height (feet): 5 Height (inches): 8.00 Triage Pain Scale: RN VS reviewed by Provider: Yes Normal Exams: Head: Normocephalic w/o trauma Eyes: Pupils are PERRLA w/ EOMI, No scleral icterus, irritation, or foreign bodies noted ENMT: No facial trauma, nasal exudates, pharyngeal erythema, or exudates are noted Neck: Full range of motion, without adenopathy, JVD, bruits or thyromegaly Respiratory (brief) Respiratory: FOUND: equal bilaterally, symmetrical, wheezes, NOT FOUND: clear all lara (course tight wheezes bilaterally), rales, tenderness Cardiovascular (brief) Cardiac: NOT FOUND: click, gallop, murmur, pedal edema, regular rate ( irregularly irregular tachycardia, atrial fibrillation on the monitor), regular rhythm Capillary Refill: <2 sec Pulses: all distal extremities, equal, strong Abdomen (brief) Abdominal Brief: FOUND: bowel normo active x4, soft, NOT FOUND: distended, hepatosplenomegaly, tender Lymphatic (brief) Lymphatic Brief: NOT FOUND: adenopathy, lymphedema Musculoskeletal (brief) Musculoskeletal Brief: NOT FOUND: deformity, loss of motion, spasm, tenderness Integumentary (brief) Integumentary Brief: FOUND: dry, pink, warm Neurologic (brief) Neurological Brief: FOUND: CN w/o gross def to obs, gait w/o gross def to obs, motor-no gross deficits, sensory-no gross deficits, NOT FOUND: ataxia Psychiatric (brief) Psychiatric Brief: FOUND: alert, attentive, normal affect, oriented Progress Results/Orders Orders Procedure Category Date Status Time Iv Lock (Ed Only) EDM 10/31/16 Transmitted 01:23 Cbc W/Auto LAB 10/31/16 Complete Diff-Reflex Manual Cmp - Comprehensive LAB 10/31/16 Complete Metabolic EKG EKG 10/31/16 Logged Troponin I W LAB 10/31/16 Complete Hemolysis Index Albuterol/Ipratropium PHA 10/31/16 Complete (Duoneb) 01:30 Methylprednisolone PHA 10/31/16 Complete Sod Succ (Solu-Medrol 01:30 Chest, Pa & Lateral RAD 10/31/16 Taken Diltiazem (Cardizem*) PHA 10/31/16 In Process Iv Bolus (Cardizem 02:45 Lab Results Laboratory Tests Test 10/31/16 01:50 White Blood Count 6.8T/MM3 Red Blood Count 3.38M/MM3 Hemoglobin 10.2GM/DL Hematocrit 31.6% Mean Corpuscular Volume 93.5UM3 Mean Corpuscular Hemoglobin 30.2UUG Mean Corpuscular Hemoglobin Concent 32.3GM/DL RDW Standard Deviation 59.8FL Platelet Count 314T/MM3 Mean Platelet Volume 8.8UM3 Immature Granulocyte % (Auto) 0.1% Neutrophils (%) (Auto) 55.2% Lymphocytes (%) (Auto) 32.1% Monocytes (%) (Auto) 10.8% Eosinophils (%) (Auto) 1.5% Basophils (%) (Auto) 0.3% Absolute Immature Granulocyte (auto 0.01T/MM3 Absolute Neutrophils (auto) 3.8T/MM3 Absolute Lymphocytes (auto) 2.2T/MM3 Absolute Monocytes (auto) 0.7T/MM3 Absolute Eosinophils (auto) 0.1T/MM3 Absolute Basophils (auto) 0.0T/MM3 Turbidity < 20 Sodium Level 142MEQ/L Potassium Level 3.6MEQ/L Chloride Level 101MEQ/L Carbon Dioxide Level 30MEQ/L Anion Gap 11MEQ/L Blood Urea Nitrogen 12.0MG/DL Creatinine 1.1MG/DL Glomerular Filtration Rate Calc 48 BUN/Creatinine Ratio 11RATIO Glucose Level 126MG/DL Calculated Osmolality 275MOSM/KG Calcium Level 9.2MG/DL Total Bilirubin 0.80MG/DL Icterus Index < 2 Aspartate Amino Transf (AST/SGOT) 19U/L Alanine Aminotransferase (ALT/SGPT) 25U/L Alkaline Phosphatase 53U/L Troponin I 0.038ng/ml Total Protein 6.0G/DL Albumin 3.4G/DL Globulin 2.6G/DL Albumin/Globulin Ratio 1.3RATIO Chemistry Specimen Hemolysis < 15 Medications Current ED Medications Albuterol/ Ipratropium (Duoneb) 6 ml O ONCE AEROSOL Last administered on 01:53; Start 10/31/16 at 01:30; Stop 10/31/16 at 01:34; Status DC Methylprednisolone Sodium Succinate (Solu-Medrol) 125 mg O ONCE IV Last administered on 10/31/16 02:03; Start 10/31/16 at 01:30; Stop 10/31/16 at 01:34 ; Status DC Diltiazem HCl (Cardizem) 10 mg O ONCE IV ; Start 10/31/16 at 02:45; Stop at 02:46 Progress Progress EKG shows atrial fibrillation with a mild rapid rate 105-120, variable no signs of ischemia or infarction are seen Patient given 2 DuoNeb was [id number] with 125 mg of Benadryl IV - patient feeling much better after breathing treatments, O2 saturations have stabilized on her routine dosing, CBC shows no significant white cell elevation or left shift CMP is essentially normal for the patient Troponin is slightly elevated above prior studies, but shows no diagnostic elevation Patient continues to be completely pain-free after one nitroglycerin in route Heart rate continues to be moderately elevated, patient is given Cardizem 10 mg to help slow her ventricular response Discussed at length with the patient both her differential diagnosis as well as possible treatment and evaluation options. Patient declines laceration at this time, stating that she has the proper medicine at home/the snf, and can use it with a physician's orders. She prefers to go back to the snf tonight and has assured me that she will return if she worsens at any time. Patient is given written physician orders for the snf to use nitroglycerin sublingually every 5 minutes as needed for chest pain, and she is to return to the ER for any chest pain that does not resolve after 3 nitroglycerin tablets. Also included on the orders are nebulized albuterol treatments every 4-6 hours as needed for wheezing or difficulty breathing. REBECCA CABRERA MD Oct 31, 2016 01:36
[2016-10-31 01:56] LABS: BASOPHILS % (AUTO) 0.3 % (0-2); EOSINOPHILS # (AUTO) 0.1 T/MM3 (0-0.5); EOSINOPHILS % (AUTO) 1.5 % (0-4); HCT - HEMATOCRIT 31.6 % (36-46); HGB - HEMOGLOBIN 10.2 GM/DL (12-16); IMMATURE GRANULOCYTE # (AUTO) 0.01 T/MM3 (0.00-0.03); IMMATURE GRANULOCYTE % (AUTO) 0.1 % (0.0-0.5); LYMPHOCYTES # (AUTO) 2.2 T/MM3 (1-4.8); LYMPHOCYTES % (AUTO) 32.1 % (23-45); MEAN CORPUSCULAR HGB 30.2 UUG (26-34); MEAN CORPUSCULAR HGB CONC(MCHC 32.3 GM/DL (31-37); MEAN CORPUSCULAR VOLUME 93.5 UM3 (80-100); MEAN PLATELET VOLUME 8.8 UM3 (9.4-12.4); MONOCYTES # (AUTO) 0.7 T/MM3 (0-0.8); MONOCYTES % (AUTO) 10.8 % (0-9.0); NEUTROPHILS #(AUTO)-ABSOLUTE 3.8 T/MM3 (1.8-7.7); NEUTROPHILS % (AUTO) 55.2 % (33-66); RED BLOOD COUNT 3.38 M/MM3 (4.00-5.20); WBC - WHITE BLOOD COUNT 6.8 T/MM3 (4.5-11.0)
--- OUTSIDE RECORDS SUMMARY | 2016-10-31 01:59 | XMS REPORT | Continuity of Care Document ---
Author Author [facility] Organization [facility] Address Unknown Phone Unavailable Allergies Medications Medication [...] Procedures Code [place] [address] Noninvasive ear or pulse oximetry for oxygen saturation; single determination LAURA BERMUDEZ MD 12/22/2015 04738 Office or other outpatient visit for the evaluation and management of an established patient, which LAURA BERMUDEZ MD 12/22/2015 38150 Office or other outpatient visit for the evaluation and management of an established patient, which LAURA BERMUDEZ MD 08/09/2016 07278 Office or other outpatient visit for the evaluation and management of an established patient, which LAURA BERMUDEZ MD 08/09/2016 40302 Office or other outpatient visit for the evaluation and management of an established patient, which LAURA BERMUDEZ MD 09/06/2016 82111 Bronchodilation [place] [address], pre- and post- bronchodilator administration LAURA BERMUDEZ MD 09/20/2016 20059 Gas dilution or washout for determination of lung volumes and, when performed, distribution of venti LAURA BERMUDEZ MD 09/20/2016 77559 Diffusing capacity (eg, carbon monoxide, membrane) (List separately in addition to code for primary LAURA BERMUDEZ MD 09/20/2016 83413 Bronchodilation responsiveness[place] [address], pre- and post- bronchodilator administration LAURA BERMUDEZ MD 10/06/2016 38478 Gas dilution or washout for determination of lung volumes and, when performed, distribution of venti LAURA BERMUDEZ MD 10/06/2016 54707 Diffusing capacity (eg, carbon monoxide, membrane) (List separately in addition to code for primary LAURA BERMUDEZ MD 10/06/2016 Results Encounters ACCT No. Visit Date/Time Discharge Status Pt. Type Provider Facility Loc./Unit Complaint [id number] 02/29/2012 07:23:00 2011 13:00:00 DIS Outpatient Nacho RENEE, [facility] PRAVEEN
[2016-10-31 02:03] LABS: ALBUMIN 3.4 G/DL (3.5-5.0); ALBUMIN/GLOBULIN RATIO 1.3 RATIO (1.1-2.2); ALKALINE PHOSPHATASE 53 U/L (38-126); ALT (SGPT) 25 U/L (9-52); ANION GAP 11 MEQ/L (5-15); AST (SGOT) 19 U/L (14-36); BUN/CREATININE RATIO 11 RATIO (6-26); CALCIUM 9.2 MG/DL (8.4-10.2); CHLORIDE 101 MEQ/L (98-107); CO2 - CARBON DIOXIDE 30 MEQ/L (22-30); CREATININE 1.1 MG/DL (0.7-1.2); GLOMERULAR FILTRATION RATE 48; GLUCOSE 126 MG/DL (65-110); POTASSIUM 3.6 MEQ/L (3.6-5); SODIUM 142 MEQ/L (134-144)
--- NOTE | 2016-10-31 02:05 | NUR ---
IMAGING PT TO IMAGING VIA CART AT THIS TIME. O2 IN PLACE. PT AOX3. DENIES CP. NO SIGN OF DISTRESS AT THIS TIME.
--- NOTE | 2016-10-31 02:20 | NUR ---
IMAGING PT RETURN TO ROOM AT THIS TIME. O2 IN PLACE. PT AOX3. DENIES CP. NO SIGN OF DISTRESS AT THIS TIME.
[2016-10-31] MEDS ORDERED: DILTIAZEM 25mg/5ml INJECTION IV ONE (02:45)
--- NOTE | 2016-10-31 02:55 | NUR ---
FAMILY FAMILY MEMBER TO JOHN TO GET O2 FOR PT TO RETURN HOME ON. WILL RETURN FOR PT DISMISSAL. AT BEDSIDE.
[2016-10-31] MEDS ORDERED: TRAZ-170 PO (03:04)
[2016-10-31] MEDS ORDERED: BUME2TAB18 PO (03:04)
--- NOTE | 2016-10-31 03:28 | NUR ---
REPORT [facility]PORT [facility] AT [facility]. REPORT GIVEN TO MIC HOLDEN.
[2016-10-31 04:05] VITALS: BP 116/71; PULSE 130; RESP 27; O2SAT 94
--- NOTE | 2016-10-31 04:05 | NUR ---
DEPART PT AND FAMILY GIVEN DI FOR ANGINA, COPD, NITRO, ALB NEB TREATMENTS, F/U. RX PROVIDED FOR NITRO SL TABLETS AND ALB NEB TREATMENTS. ALL VERBALIZED UNDERSTANDING OF DI, MEDS, F/U. QUESTIONS ASKED/ANSWERED - DENY FURTHER QUESTIONS/NEEDS AT THIS TIME. POWER PORT HEP LOCKED AND DC'D. PERSONAL BELONGINGS GATHERED. PT'S PERSONAL O2 PLACED/NC. PT ASSISTED TO WHEELCHAIR - ASSIST X2. PT ESCORTED TO ED EXIT VIA WHEEL CHAIR, ASSISTED TO PRIVATE VEHICLE PASSENGER SIDE. DENIES CP. NO SIGN OF RESPIRATORY DISTRESS AT THIS TIME. REPORT PREVIOUSLY CALLED TO [facility]/HIDE INSPECTOR AND SORTER - VERBALIZED UNDERSTANDING OF DI, MEDS, F/U.
--- NOTE | 2016-10-31 09:06 | DI ---
INDICATION: ITS.REASON: dyspnea with chest pain PROCEDURE: CHEST 2-VIEWS UPRIGHT (PA \T\ LAT) Encounter: Initial COMPARISON: July 13, 2016 FINDINGS: Left upper lobe mass is enlarging with associated consolidation. New right upper lobe consolidation. Small left pleural effusion is new. No pneumothorax. Heart size is unchanged. Pulmonary vascularity is grossly stable. Impression: New right upper lobe pneumonia. .
== END 2016-10-31 04:05 | disposition home or self-care (01) ==
LOC: ED 01:16
DX: I20.8 Other forms of angina pectoris (principal); I11.0 Hypertensive heart disease with heart failure; I50.9 Heart failure, unspecified; J44.1 Chronic obstructive pulmonary disease with (acute) exacerbation; I48.91 Unspecified atrial fibrillation; Z79.01 Long term (current) use of anticoagulants
CPT/HCPCS: 71020; 80053; 84484; 85025; 93005; 94640; 96374; 96375; 99284; J2930

== ENCOUNTER → 2016-11-01 | Outpatient (CLI) | payer MEDICARE ==
[~2016-11-01] MED LIST changes: +BUME2TAB18 PO; +FENO54TA6 PO; +HYDR-2600 PO; +TOLT4CAP PO; +TRAZ-170 PO
--- NOTE | 2016-11-02 11:52 | ECHOF ---
DATE OF PROCEDURE November 01, 2016 This is a two-dimensional echo with spectral Doppler, color-flow and M-mode. It was obtained in a patient with cancer, on chemotherapy. This is a technically difficult study. Left atrium is dilated. Left ventricle end-diastolic dimension is normal. Left ventricle wall thickness is increased. LV systolic function appears to be normal with ejection fraction in the range of 55%. However, all davila were not visualized. Right atrium is dilated. Right ventricle is normal. Aortic root dimension is normal. Mitral annulus is calcified. Mitral valve leaflets are normal with mild mitral regurgitation. Aortic valve shows fibrocalcific changes with restriction on opening motion. Transaortic velocities are increased with a peak velocity of 2.5 m/sec with peak gradient of 25 and mean gradient of 19. Aortic valve area is calculated at 1.37 cm2. There is no aortic insufficiency. Tricuspid valve shows mild tricuspid regurgitation with estimated pulmonary artery systolic pressure of 72. However, this appears to be an erroneous number since there is no evidence of interventricular septal flattening. Pulmonary valve shows no pulmonary insufficiency. There is no pericardial effusion. IMPRESSION 1. Technically difficult study. 2. Grossly normal LV systolic function with ejection fraction of 55%. However, all davila were not visualized. 3. Concentric left ventricular hypertrophy. 4. Biatrial dilation. 5. Mitral annulus calcification with mild mitral regurgitation. 6. Mild aortic stenosis with a valve area of 1.37 cm2. 7. Mild tricuspid regurgitation with severe pulmonary hypertension with estimated pulmonary artery systolic pressure of 72. However, this could be an erroneous number since there was no interventricular septal flattening. MTDD
== END ==
LOC: IMA 06:11
PROVIDERS: ATTEND Internal Medicine Cardiovascular Disease
DX: I48.0 Paroxysmal atrial fibrillation (principal)
CPT/HCPCS: 93306

== ENCOUNTER → 2016-11-03 | Outpatient (CLI) | payer MEDICARE ==
[~2016-11-03] VITALS: Ht 170.2 cm; Wt 127.0 kg
[~2016-11-03] MED LIST changes: +REGADENOSON 0.4mg/5ml INJECTION IV ONE; +SALINE FLUSH 10ml SYRINGE ONE
--- NOTE | 2016-11-08 19:45 | ADENOSINEF ---
STRESS TEST - LEXISCAN MYOVIEW DATE OF PROCEDURE November 03, 2016 PROCEDURE Lexiscan Myoview. IMPRESSION 1. Baseline EKG shows atrial fibrillation with anteroseptal ID. 2. She tolerated Lexiscan without difficulty. 3. Hemodynamic response to Lexiscan was appropriate. 4. 12.4 mCi of Myoview was given for rest images and 31.5 mCi for stress images. 5. There were no ischemic EKG changes. 6. There were no new arrhythmias. 7. Nuclear perfusion images revealed normal coronary perfusion with no scar or ischemia. 8. Quantitative ejection fraction is measured at 59%. MTDD
== END ==
LOC: IMA 10:48
PROVIDERS: ATTEND Internal Medicine Cardiovascular Disease
DX: I25.10 Atherosclerotic heart disease of native coronary artery without angina pectoris (principal); I48.91 Unspecified atrial fibrillation; R94.31 Abnormal electrocardiogram [ECG] [EKG]
CPT/HCPCS: 78452; 93017; A9502; J1642; J2785

== ENCOUNTER 2016-11-09 06:02 | Emergency (ER) | payer MEDICARE ==
[~2016-11-09] VITALS: Ht 170.2 cm; Wt 117.3 kg
[~2016-11-09 06:02] MED LIST changes: -FENO54TA6 PO; -HYDR-2600 PO; -REGADENOSON 0.4mg/5ml INJECTION IV ONE; -SALINE FLUSH 10ml SYRINGE ONE; -TOLT4CAP PO
[2016-11-09 06:04] VITALS: Ht 170.2 cm; Wt 117.3 kg
--- OUTSIDE RECORDS SUMMARY | 2016-11-09 06:07 | XMS REPORT | Continuity of Care Document ---
Author Author [facility] Organization [facility] Address Unknown Phone Unavailable Support Name Relationship Address Phone RAEGAN ACKERMAN MD Caregiver [address] [address] Unavailable ANGY ZUNIGA DO Caregiver [address] [place] [address] Unavailable SARWAT ZAMAN(DPOA) Next Of Kin X X, X X [phone] Insurance Providers Guarantor Stefany Campo Address [address] [place] [address] Email [email or web address] Payer [facility] [employer] Ppo Policy Number [id number] Subscriber's Name Stefany Campo Relationship 18 Self Group Number [id number] Problems Active Problems Medical Problem Onset Date [...] Left lower lobe pneumonia Unknown Pneumonia Unknown Stable angina Unknown Medications Current Home Medications Medication Dose [...] 1 Vial Inhalation Twice A Day 12/16/10 Bumetanide 2 Mg Tablet 1 Tab Oral Twice A Day 60 Tablet 10/31/16 Calcium Carbonate/Vitamin D3 (Calcium 600 + Vit [...] Mg Tablet 50 Mg Oral Bedtime 01/16/15 Trazodone Hcl 50 Mg Tablet 50 Mg Oral Bedtime Take 1 tablet, by mouth, one time a day (at BEDTIME). 10/31/16 Past Home Medications Medication Directions Ordered Status [...] 08/20/09 Discontinued Budesonide (Rhinocort Aqua) 8.6 Gm [place], 8.6 Gm Nasal As Needed 08/20/09 Discontinued Budesonide (Rhinocort Aqua) 8.6 Gm [place], 0.32 Mg Nasal As Needed 08/20/09 Discontinued [...] Applicable Not Applicable Hx Alcohol Use No 10/31/2016 2:30am Not Applicable Not Applicable Has the pt used tobacco in the last 12 months No 02/19/2016 1:04pm Not Applicable Not Applicable Tobacco Usage none 04/28/2015 9:53pm Not Applicable Not Applicable Hospital Discharge Instructions Current inpatient/outpatient. Discharge instructions are currently unavailable. Plan of Care Current inpatient/outpatient. The plan of care is currently unavailable Functional Status No functional status results. Allergies, Adverse Reactions, Alerts Allergen Type Severity Reaction Status Last Updated No Known Drug Allergies Allergy Unknown Active 10/31/16 Immunizations Query Response on File Recorded Date/Time Hx Influenza Vaccination Y 02/19/16 1:04pm Hx Pneumococcal Vaccination Y 02/19/16 1:04pm Hx Influenza Vaccination Y 02/19/16 1:04pm Hx Tetanus Diptheria Y 5 YRS 01/16/15 2:36pm Influenza Vaccine Hx FALL 201510/31/16 2:30am Vital Signs Acute Vital Signs Vital Response Date/Time Pulse Rate (adult) 130 bpm (60 - 100) 10/31/2016 4:05am Respiratory Rate 27 breaths/min (10 - 20) 10/31/2016 4:05am O2 Sat by Pulse Oximetry 94 % (90 - 100) 10/31/2016 4:05am Oxygen Flow Rate 3.00 L/min 10/31/2016 4:05am Blood Pressure 116/71 mm Hg 10/31/2016 4:05am Height (Feet) 5 feet 11/03/2016 12:45pm Height (Inches) 7.00 inches 11/03/2016 12:45pm Weight (Kilograms) 127.000 kg 11/03/2016 12:45pm Body Mass Index (BMI) 40.0 10/31/2016 1:16am Results Laboratory Results Test Name Result Units Flags Reference Collection Date/Time Result Date/ Time Comments Carcinoembryonic Antigen 2.64 UG/L D 0-3.0 09/23/2016 8:36am 09/23/2016 9 :30am CA 27.29 11.13 U/ML 0-37.7 09/23/2016 8:36am 09/23/2016 9:43am White Blood Count 6.8 T/MM3 4.5-11.0 10/31/2016 1:50am 10/31/2016 1: 56am Red Blood Count 3.38 M/MM3 L 4.00-5.20 10/31/2016 1:50am 10/31/2016 1: 56am Hemoglobin 10.2 GM/DL L 12-16 10/31/2016 1:50am 10/31/2016 1:56am Hematocrit 31.6 % L 36-46 10/31/2016 1:50am 10/31/2016 1:56am Mean Corpuscular Volume 93.5 UM3 80-100 10/31/2016 1:50am 10/31/2016 1: 56am Mean Corpuscular Hemoglobin 30.2 UUG 26-34 10/31/2016 1:50am 2016 1:56am Mean Corpuscular Hemoglobin Concent 32.3 GM/DL 31-37 10/31/2016 1:50am 10/31/2016 1:56am RDW Standard Deviation 59.8 FL H 36.9-50.2 10/31/2016 1:50am 10/31/2016 1:56am Platelet Count 314 T/MM3 130-400 10/31/2016 1:50am 10/31/2016 1:56am Mean Platelet Volume 8.8 UM3 L 9.4-12.4 10/31/2016 1:50am 10/31/2016 1: 56am Neutrophils (%) (Auto) 55.2 % 33-66 10/31/2016 1:50am 10/31/2016 1: 56am Lymphocytes (%) (Auto) 32.1 % 23-45 10/31/2016 1:50am 10/31/2016 1: 56am Monocytes (%) (Auto) 10.8 % H 0-9.0 10/31/2016 1:50am 10/31/2016 1:56am Eosinophils (%) (Auto) 1.5 % 0-4 10/31/2016 1:50am 10/31/2016 1:56am Basophils (%) (Auto) 0.3 % 0-2 10/31/2016 1:50am 10/31/2016 1:56am Immature Granulocyte % (Auto) 0.1 % 0.0-0.5 10/31/2016 1:50am 2016 1:56am Absolute Neutrophils (auto) 3.8 T/MM3 1.8-7.7 10/31/2016 1:50am 2016 1:56am Absolute Lymphocytes (auto) 2.2 T/MM3 1-4.8 10/31/2016 1:50am 2016 1:56am Absolute Monocytes (auto) 0.7 T/MM3 0-0.8 10/31/2016 1:50am 10/31/2016 1:56am Absolute Eosinophils (auto) 0.1 T/MM3 0-0.5 10/31/2016 1:50am 2016 1:56am Absolute Basophils (auto) 0.0 T/MM3 0-0.2 10/31/2016 1:50am 10/31/2016 1:56am Absolute Immature Granulocyte (auto 0.01 T/MM3 0.00-0.03 10/31/2016 1: 50am 10/31/2016 1:56am Icterus Index < 2 0-7 10/31/2016 1:50am 10/31/2016 2:03am Chemistry Specimen Hemolysis < 15 0-25 10/31/2016 1:50am 10/31/2016 2 :03am 0-25: Specimen Exhibited No Hemolysis. Turbidity < 20 0-20 10/31/2016 1:50am 10/31/2016 2:03am Sodium Level 142 MEQ/L 134-144 10/31/2016 1:50am 10/31/2016 2:03am Potassium Level 3.6 MEQ/L 3.6-5 10/31/2016 1:50am 10/31/2016 2:03am Chloride Level 101 MEQ/L 98-107 10/31/2016 1:50am 10/31/2016 2:03am Carbon Dioxide Level 30 MEQ/L 22-30 10/31/2016 1:50am 10/31/2016 2: 03am Anion Gap 11 MEQ/L 5-15 10/31/2016 1:50am 10/31/2016 2:03am Blood Urea Nitrogen 12.0 MG/DL 7-17 10/31/2016 1:50am 10/31/2016 2: 03am Creatinine 1.1 MG/DL 0.7-1.2 10/31/2016 1:50am 10/31/2016 2:03am BUN/Creatinine Ratio 11 RATIO 6-26 10/31/2016 1:50am 10/31/2016 2:03am Glomerular Filtration Rate Calc 48 10/31/2016 1:50am 10/31/2016 2: 03am Glucose Level 126 MG/DL H 65-110 10/31/2016 1:50am 10/31/2016 2:03am Calculated Osmolality 275 MOSM/KG 261-280 10/31/2016 1:50am 10/31/2016 2:03am Calcium Level 9.2 MG/DL 8.4-10.2 10/31/2016 1:50am 10/31/2016 2:03am Total Bilirubin 0.80 MG/DL 0.20-1.30 10/31/2016 1:50am 10/31/2016 2: 03am Alkaline Phosphatase 53 U/L 38-126 10/31/2016 1:50am 10/31/2016 2:03am Total Protein 6.0 G/DL L 6.3-8.2 10/31/2016 1:50am 10/31/2016 2:03am Albumin 3.4 G/DL L 3.5-5.0 10/31/2016 1:50am 10/31/2016 2:03am Globulin 2.6 G/DL 2.4-3.6 10/31/2016 1:50am 10/31/2016 2:03am Albumin/Globulin Ratio 1.3 RATIO 1.1-2.2 10/31/2016 1:50am 10/31/2016 2 :03am Aspartate Amino Transf (AST/SGOT) 19 U/L 14-36 10/31/2016 1:50am 2016 2:03am Alanine Aminotransferase (ALT/SGPT) 25 U/L 9-52 10/31/2016 1:50am 10/31 2:03am Troponin I 0.038 ng/ml 0-0.12 10/31/2016 1:50am 10/31/2016 2:15am Troponin values with a difference of 55% increase from orginal troponin value represent a true biological DELTA value. (%increase Calc=Orginal Troponin value, divided by subsequent Troponin value, multiplied by 100) Microbiology Results Procedure Source Organism/Result Collection Date/Time Result Date/Time Result Status Throat Culture Throat NORMAL EVONNE 09/10/2016 UNK 09/12/2016 7:46am Final STAPHYLOCOCCUS AUREUS 09/10/2016 UNK 09/12/2016 7:46am Final Procedures Procedure Status Date Provider(s) Pet image w/ct skull-thigh Completed 08/11/16 [id number]"FLUORODEOXYGLUCOSE F-18 FDG, DIAGNOSTIC, PER STUDY DO Completed Mri brain stem w/o & w/dye Completed 08/17/16 GADAVIST 10ML SDV - Contrast,Gadavist 10ml Completed 08/17/16 467339"INJECTION, HEPARIN SODIUM, (HEPARIN LOCK FLUSH), PER Completed Cat scan follow-up study Completed 08/19/16 Culture othr specimn aerobic Completed 09/10/16 Culture type immunologic Completed 09/10/16 Microbe susceptible honey Completed 09/10/16 Chest x-ray 2vw frontal&latl Completed 10/31/16 Comprehen metabolic panel Completed 10/31/16 Assay of troponin quant Completed 10/31/16 Complete cbc w/auto diff wbc Completed 10/31/16 Electrocardiogram tracing Completed 10/31/16 Airway inhalation treatment Completed 10/31/16 Ther/proph/diag inj iv push Completed 10/31/16 Tx/pro/dx inj new drug addon Completed 10/31/16 Emergency dept visit Completed 10/31/16 468236"INJECTION, METHYLPREDNISOLONE SODIUM SUCCINATE, UP TO Completed Encounters Encounter Location Arrival/Admit Date Discharge/Depart Date Attending Provider Registered [facility] 11/03/16 10:48am RAEGAN ACKERMAN MD Registered [facility] 11/01/16 6:11am RAEGAN ACKERMAN MD Departed Emergency Room [facility] 10/31/16 1:16am 10/31/16 4: 05am REBECCA CABRERA MD Discharged Recurring [facility] 09/23/16 7:59am 11/07/16 11:59pm CHRIS TORO MD Registered [facility] 09/10/16 10:25am JHON IVAN MD Registered [facility] 08/19/16 10:33am JHON IVAN MD Registered [facility] 08/17/16 12:28pm CHRIS TORO MD Registered [facility] 08/11/16 7:03am CHRIS TORO MD
--- OUTSIDE RECORDS SUMMARY | 2016-11-09 06:09 | XMS REPORT | Continuity of Care Document ---
Author Author [facility] Organization [facility] Address Unknown Phone Unavailable Support Name Relationship Address Phone REBECCA CABRERA MD Caregiver [address] [place] [address] Unavailable ANGY ZUNIGA DO Caregiver [address] [place] [address] Unavailable SARWAT ZAMAN(DPOA) Next Of Kin X X, X X [phone] Insurance Providers Guarantor Stefany Campo Address [address] [place] [id number] Email [email or web address] Payer [facility] [employer] Ppo Policy Number [id number] Subscriber's Name Stefany Campo Relationship 18 Self Group Number [id number] Advance Directives Directive Response Recorded Date/Time Advanced Directives Type DNR Documentation 10/31/16 1:16am Chief Complaint and Reason for Visit Chief Complaint Chest Pain Reason for Visit COPD (chronic obstructive pulmonary disease) Stable angina Problems Active Problems Medical Problem Onset Date [...] 08/20/09 Discontinued Budesonide (Rhinocort Aqua) 8.6 Gm [place], 8.6 Gm Nasal As Needed 08/20/09 Discontinued Budesonide (Rhinocort Aqua) 8.6 Gm [place], 0.32 Mg Nasal As Needed 08/20/09 Discontinued [...] discharge instructions. Plan of Care Discharge Date 10/31/16 4:05am Disposition 01 DISCHARGED HOME, SELF-CARE Condition at Discharge Improved Instructions/Education Provided Angina (ED) COPD (Chronic Obstructive Pulmonary Disease) (DC) Prescriptions See Medication Section Referrals ANGY ZUNIGA DO Address: [address] [place] [phone] Additional Instructions/Education Use nitroglycerin at home one tablet every 5 minutes as needed for chest pain. Return to ER for any chest pain that does not resolve after 3 tablets or recurs more than twice in one day Albuterol nebulized treatments, use 4 times daily for the next week, may also use up to 6 per day as needed for wheezing or difficulty breathing Return immediately to the ER for any worsening symptoms Care Plan and Goals Physician Care Plan Problem: Stable angina, COPD with exacerbation Goal: Follow up with primary care provider Instructions: Take medications and follow care plan as discussed/written Use nitroglycerin at home one tablet every 5 minutes as needed for chest pain. Return to ER for any chest pain that does not resolve after 3 tablets or recurs more than twice in one day Albuterol nebulized treatments, use 4 times daily for the next week, may also use up to 6 per day as needed for wheezing or difficulty breathing Return immediately to the ER for any worsening symptoms Functional Status No functional status results. Allergies, Adverse Reactions, Alerts Allergen Type Severity Reaction Status Last Updated No Known Drug Allergies Allergy Unknown Active 10/31/16 Immunizations Query Response on File Recorded Date/Time Hx Influenza Vaccination Y 02/19/16 1:04pm Hx Pneumococcal Vaccination Y 02/19/16 1:04pm Hx Influenza Vaccination Y 02/19/16 1:04pm Hx Tetanus Diptheria Y 5 YRS 01/16/15 2:36pm Influenza Vaccine Hx FALL 10/31/17 2:30am Vital Signs Acute Vital Signs Vital Response Date/Time Pulse Rate (adult) 130 bpm (60 - 100) 10/31/2016 4:05am Respiratory Rate 27 breaths/min (10 - 20) 10/31/2016 4:05am O2 Sat by Pulse Oximetry 94 % (90 - 100) 10/31/2016 4:05am Oxygen Flow Rate 3.00 L/min 10/31/2016 4:05am Blood Pressure 116/71 mm Hg 10/31/2016 4:05am Height (Feet) 5 feet 10/31/2016 1:16am Height (Inches) 7.00 inches 10/31/2016 1:16am Weight (Kilograms) 118.500 kg 10/31/2016 1:16am Body Mass Index (BMI) 40.0 10/31/2016 1:16am [...] Provider(s) Pet image w/ct skull-thigh Completed 08/11/16 [id number]"FLUORODEOXYGLUCOSE F-18 FDG, DIAGNOSTIC, PER STUDY DO Completed Mri brain stem w/o & w/dye Completed 08/17/16 GADAVIST 10ML SDV - Contrast,Gadavist 10ml Completed 08/17/16 695300"INJECTION, HEPARIN SODIUM, (HEPARIN LOCK FLUSH), PER Completed Cat scan follow-up study Completed 08/19/16 Culture othr specimn aerobic Completed 09/10/16 Culture type immunologic Completed 09/10/16 Microbe susceptible honey Completed 09/10/16 Encounters Encounter Location Arrival/Admit Date Discharge/Depart Date Attending Provider Departed Emergency Room [facility] 10/31/16 1:16am 10/31/16 4: 05am REBECCA CABRERA MD Registered [facility] 09/23/16 7:59am CHRIS TORO MD Registered [facility] 09/10/16 10:25am JHON IVAN MD Registered [facility] 08/19/16 10:33am JHON IVAN MD Registered [facility] 08/17/16 12:28pm CHRIS TORO MD Registered [facility] 08/11/16 7:03am CHRIS TORO MD Recent Diagnosis
--- OUTSIDE RECORDS SUMMARY | 2016-11-09 06:09 | XMS REPORT | Continuity of Care Document ---
Author Author Organization Address Unknown Phone Unavailable Allergies Medications Medication [...] lobe, left bronchus or lung AIDAN AVILA, ALURA 06/09/2015 LAURA BERMUDEZ MD J45.40 Moderate persistent [...] Procedures Code Description [place] [address] Noninvasive ear or pulse oximetry for oxygen saturation; single determination LAURA BERMUDEZ MD 12/22/2015 48806 Office or other outpatient visit for the evaluation and management of an established patient, which LAURA BERMUDEZ MD 12/22/2015 15291 Office or other outpatient visit for the evaluation and management of an established patient, which LAURA BERMUDEZ MD 08/09/2016 66423 Office or other outpatient visit for the evaluation and management of an established patient, which LAURA BERMUDEZ MD 08/09/2016 22678 Office or other outpatient visit for the evaluation and management of an established patient, which LAURA BERMUDEZ MD 09/06/2016 37919 Bronchodilation [place] [address], pre- and post- bronchodilator administration LAURA BERMUDEZ MD 09/20/2016 28229 Gas dilution or washout for determination of lung volumes and, when performed, distribution of venti LAURA BERMUDEZ MD 09/20/2016 89663 Diffusing capacity (eg, carbon monoxide, membrane) (List separately in addition to code for primary LAURA BERMUDEZ MD 09/20/2016 62734 Bronchodilation responsiveness[place] [address], pre- and post- bronchodilator administration LAURA BERMUDEZ MD 10/06/2016 02812 Gas dilution or washout for determination of lung volumes and, when performed, distribution of venti LAURA BERMUDEZ MD 10/06/2016 39438 Diffusing capacity (eg, carbon monoxide, membrane) (List separately in addition to code for primary LAURA BERMUDEZ MD 10/06/2016 Results Encounters ACCT No. Visit Date/Time Discharge Status Pt. Type Provider Facility Loc./Unit Complaint [id number] 02/29/2012 07:23:00 2011 13:00:00 DIS Outpatient Nacho RENEE, [facility] PR[facility]EN
--- NOTE | 2016-11-09 06:14 | NUR ---
DR PRADO IN
--- NOTE | 2016-11-09 06:14 | ERPDOC ---
Departure Disposition Decision Date: November 09, 2016 Disposition Decision Time: 06:53 Disposition: 01 DISCHARGED HOME, SELF-CARE Impression Impression Impression: Primary Impression: Knee pain Laterality: right Chronicity: acute Qualified Codes: M25.561 - Pain in right knee Additional Impressions: A-fib Atrial fibrillation type: chronic Qualified Codes: I48.2 - Chronic atrial fibrillation COPD (chronic obstructive pulmonary disease) COPD type: unspecified COPD Qualified Codes: J44.9 - Chronic obstructive pulmonary disease, unspecified Anticoagulant long-term use Severity: Moderate Condition: Improved Seen By: Physician only Referrals: ANGY ZUNIGA DO (Family) 1 Week Patient Instructions: Fall Prevention (ED), Knee Pain (ED) Problems/Meds/Labs Reviewed?: Yes Medications reviewed and manag: Yes Additional Instructions: You have bruised, but not broken you knee. Take your usual pain medications and ice your knee to help with pain and swelling. If your pain is still severe, take the norco. Follow up with your doctor in the next week. Follow up care ordered?: Yes Mental Status: Alert, Oriented Scripts Hydrocodone/Acetaminophen (Hydrocodon-Acetaminophen 5-300) 5-300 Tablet 1 TAB PO Q6HPRN Y for PAIN, #20 TAB Prov: NOVEMBEROXANA DO 11/09/16 HPI - Lower Extremity General Stated Complaint: FALL Time Seen by Provider: 06:03 Source: patient, RN/MD Exam Limitations: no limitations HPI - Lower Extremity Initial Comments 81yo woman presented to the ER by EMS with right knee pain. Pt is well-known to this ER; has numerous medical comorbidities. Pt was in her bathroom earlier today and fell; now has pain and bruising over the anterior knee. Pt told the [facility] staff that she broke her knee. [facility] facility contacted pts PCM, who recommended that pt be presented for evaluation of her knee pain. Occurred At: home Onset/Timing: Rapid Duration: 1-3 hrs Pain/Severity Scale: Now & Worst: 6/10 Severity: moderate Pain/Injury Location: right knee 1 - Ecchymosis Method of Injury: fell Modifying Factors/Context: IMPROVES WITH: immobilization, pain medication, rest , WORSE WITH: jarring, movement Hx of Similar Symptoms: No Quality: sharpness, throbbing Allergies: Coded Allergies: No Known Drug Allergies (Verified Allergy, Unknown, 11/09/16) Past History Past Medical History Metabolic: cancer, hypercholesterolemia, hypertension Cardiac: A-fib, CAD, CHF, MD, other Respiratory: COPD, pneumonia GI: GERD Female: renal insufficiency Musculoskeletal: osteoarthritis, other Surgical History General: other Joint: foot, knee Family History Family PMH: FOUND: MD, diabetes, hypertension Vaccines Hx Influenza Vaccination: Yes () Hx Pneumococcal Vaccination: Yes () Hx Tetanus Diptheria: Yes (5 YRS) Social History Does patient use chewing tobac: No Second Hand Exposure: No Substance Use Type: does not use Sexuality: male partner Household Members: spouse Review of Systems Musculoskeletal General: joint pain All other Systems All Other Systems: Reviewed and Negative Physical Exam General General Nourishment: well nourished, well developed, appears stated age, no acute distress, adult, obese (Morbid) General Body Habitus: well groomed Vitals and Pain First Documented Vital Signs Date Time Temp Pulse Resp B/P Pulse Ox O2 Delivery O2 Flow Rate FiO2 11/09/16 06:04 97.0 94 28 157/91 98 Nasal Cannula 3.00 Weight: Kilograms: Height (feet): 5 Height (inches): 7.00 Triage Pain Scale: RN VS reviewed by Provider: Yes Respiratory (brief) Respiratory: FOUND: equal bilaterally, rales (Throughout lung lara), symmetrical, NOT FOUND: clear all lara, wheezes Cardiovascular (brief) Cardiac: FOUND: regular rate, NOT FOUND: click, gallop, murmur, pedal edema, peripheral edema, regular rhythm (Irregularly irregular rhythm), rub Capillary Refill: <2 sec Pulses: all distal extremities, equal, strong Musculoskeletal Joint : Side: Right Joint: knee Joint Findings: FOUND: ROM limited (Chronic), discoloration (Ecchymosis inf to patella), pain, NOT FOUND: deformity, instability, laceration, swelling ( Unable to assess 2/2 chronic edema and obesity) Supervisory Exam Head: atraumatic Eyes: PERRL Nares: no exudate Neck: trachea midline Chest: symmetric Abdomen: non-distended Neurological: no abnormal movements Skin: pink, dry Psychological: alert Differential Diagnoses Considering: Cartilage Tear, Contusion, Dislocation, Fracture, Ligament Tear ACL, Ligament Tear PCL, Meniscal Injury, Knee, Sprain, Strain Progress Results/Orders Orders Procedure Category Date Status Time Hydrocodone/Acetaminophen PHA 11/09/16 Complete ([place] 5/325) 06:30 Ondansetron Odt PHA 11/09/16 Complete (Zofran Odt) 06:30 Knee Right 3 Views RAD 11/09/16 Resulted 06:16 Medications Current ED Medications Acetaminophen/ Hydrocodone Bitart ([place] 5/325) 1 tab O ONCE PO Last administered on 11/09/16 06:27; Start 11/09/16 at 06:30; Stop 11/09/16 at 06:31; Status DC Ondansetron HCl (Zofran Odt) 4 mg O ONCE PO Last administered on 11/09/16t 06: 26; Start 11/09/16 at 06:30; Stop 11/09/16 at 06:31; Status DC Progress Progress No evidence of bony pathology; bruising as expected of a pt on chronic anticoag. Discussed dx, prognosis, tx, and need for f/u with pt and who voiced understanding. Will d/c to home; pt will need to wait until daughter brings home O2 for pt, who [place] Consult/PCP Consult/PCP : Physician Contacted: Dr. Zuniga Type of discussion: Phone Consult/PCP Discussion Details Dr. Zuniga called Night ER physician to discuss pts injury and inform him of pts impending txfr from [facility]. Pt has numerous comorbidities, including OA secondary to morbid obesity. Pt fell in her bathroom earlier today ; she called Dr. Zuniga to inform him that her knees were broken. Dr. Zuniga ( by report) called [facility] to recommend that pt be txported to ER for urgent evaluation of knee pain. Xray Xray : Xray: Knee R Interpretation: Abnormal (Prior total replacement), Interpreted by Me OXANA PRADO DO November 09, 2016 06:13 OXANA PRADO DO November 09, 2016 06:13
--- OUTSIDE RECORDS SUMMARY | 2016-11-09 06:20 | XMS REPORT | Continuity of Care Document ---
[...] BERMUDEZ MD J45.40 Moderate persistent asthma, uncomplicated IADAN AVILA, LAURA 06/09/2015 LAURA BERMUDEZ MD R06.02 [...] Procedures Code Description [place] [address] Noninvasive ear or pulse oximetry for oxygen saturation; single determination LAURA BERMUDEZ MD 12/22/2015 95553 Office or other outpatient visit for the evaluation and management of an established patient, which LAURA BERMUDEZ MD 12/22/2015 34095 Office or other outpatient visit for the evaluation and management of an established patient, which LAURA BERMUDEZ MD 08/09/2016 84378 Office or other outpatient visit for the evaluation and management of an established patient, which LAURA BERMUDEZ MD 08/09/2016 30734 Office or other outpatient visit for the evaluation and management of an established patient, which LAURA BERMUDEZ MD 09/06/2016 99085 Bronchodilation responsiveness[place] [address], pre- and post- bronchodilator administration LAURA BERMUDEZ MD 09/20/2016 91409 Gas dilution or washout for determination of lung volumes and, when performed, distribution of venti LAURA BERMUDEZ MD 09/20/2016 72635 Diffusing capacity (eg, carbon monoxide, membrane) (List separately in addition to code for primary LAURA BERMUDEZ MD 09/20/2016 56206 Bronchodilation responsiveness[place] [address], pre- and post- bronchodilator administration LAURA BERMUDEZ MD 10/06/2016 12215 Gas dilution or washout for determination of lung volumes and, when performed, distribution of venti LAURA BERMUDEZ MD 10/06/2016 24698 Diffusing capacity (eg, carbon monoxide, membrane) (List separately in addition to code for primary LAURA BERMUDEZ MD 10/06/2016 Results Encounters ACCT No. Visit Date/Time Discharge Status Pt. Type Provider Facility Loc./Unit Complaint [id number] 02/29/2012 07:23:00 2011 13:00:00 DIS Outpatient Nacho RENEE, [facility]
[2016-11-09] MEDS ORDERED: HYDROCODONE/APAP 5 mg/325 mg TABLET PO ONE (06:30)
[2016-11-09] MEDS ORDERED: ONDANSETRON ODT 4 MG TAB PO ONE (06:30)
--- NOTE | 2016-11-09 06:30 | NUR ---
TO [facility] PER CART
--- NOTE | 2016-11-09 06:40 | NUR ---
RETURNED FROM [facility]
[2016-11-09] MEDS ORDERED: TOLT4CAP PO (06:47)
[2016-11-09] MEDS ORDERED: FENO54TA6 PO (06:47)
[2016-11-09] MEDS ORDERED: HYDR-2600 PO (06:55)
--- NOTE | 2016-11-09 07:39 | NUR ---
STATUS DOZES IF LEFT UNDISTURBED. PAIN IMPROVED TO 3/10. WAITING FOR FAMILY WITH O2 TANK TO TRANSFER HOME
[2016-11-09 07:55] VITALS: BP 142/83; PULSE 98; RESP 28; TEMP 98.4; O2SAT 96
--- NOTE | 2016-11-09 07:55 | DI ---
Indication: ITS.REASON: Fall; bruising PROCEDURE: KNEE RIGHT 3 VIEWS: Encounter: Initial Comparison: None Findings: There is no acute fracture, dislocation or malalignment identified. Total knee replacement appears intact. Skin sutures. Impression: No acute osseous abnormality. .
--- NOTE | 2016-11-09 07:55 | NUR ---
DISMISSAL INSTRUCTIONS REVIEWED. FAMILY VERBALIZES UNDERSTANDING. PT REMAINS IN BED ON O2 UNTIL DAUGHTER ARRIVES WITH O2.
== END 2016-11-09 07:55 | disposition home or self-care (01) ==
LOC: ED 06:02
DX: S80.01XA Contusion of right knee, initial encounter (principal); I48.91 Unspecified atrial fibrillation; Z79.01 Long term (current) use of anticoagulants; J44.9 Chronic obstructive pulmonary disease, unspecified; W18.30XA Fall on same level, unspecified, initial encounter; Y93.89 Activity, other specified; Y92.002 Bathroom of unspecified non-institutional (private) residence as the place of occurrence of the external cause; Y99.8 Other external cause status
CPT/HCPCS: 73562; 99283; A9270